=== PATIENT | female | born 1950 | race Caucasian/White ===

== ENCOUNTER 2018-09-03 14:20 | Emergency (ER) | payer MEDICARE, OTHER ==
[~2018-09-03] VITALS: Ht 175.3 cm; Wt 64.9 kg
[~2018-09-03 14:20] MED LIST: ALBU8HFA4 IH; DIAZ10TA PO; DIAZ5TAB4 PO; DIPH25CA83 PO; GABA300C PO
[2018-09-03] MEDS ORDERED: IPRATROPIUM BROMIDE 0.5 MG/2.5 ML NEBU NEB ONE (15:00)
[2018-09-03] MEDS ORDERED: ALBUTEROL SULFATE 2.5 MG/3 ML NEBU NEB ONE (15:00)
[2018-09-03] MEDS ORDERED: ALBUTEROL SULFATE 2.5 MG/3 ML NEBU ONE (15:06)
[2018-09-03] MEDS ORDERED: IPRATROPIUM BROMIDE 0.5 MG/2.5 ML NEBU ONE (15:06)
[2018-09-03] MEDS ORDERED: predniSONE 10 MG TABLET ONE (15:23)
[2018-09-03] MEDS ORDERED: predniSONE 50 MG TABLET ONE (15:23)
--- NOTE | 2018-09-03 15:26 | NUR ---
Patient discharged to home in stable conditon. Written and verbal after care instructions given to patient. Patient verbalizes understanding of instructions.
[2018-09-03] MEDS ORDERED: predniSONE 20 MG TABLET PO ONE (15:30)
== END 2018-09-03 15:31 | disposition home or self-care (01) ==
LOC: EDBD → ER 14:20 → MERGE 14:20 → ER 15:31
DX: J45.901 Unspecified asthma with (acute) exacerbation (principal); H66.91 Otitis media, unspecified, right ear; H60.91 Unspecified otitis externa, right ear; Z88.1 Allergy status to other antibiotic agents; Z88.2 Allergy status to sulfonamides; Z79.899 Other long term (current) drug therapy
CPT/HCPCS: 94640; 99283; J7512 ×2; A4663; J3590

== ENCOUNTER 2018-09-18 23:13 | Emergency (ER) | payer MEDICARE, OTHER ==
[~2018-09-18] VITALS: Ht 170.2 cm; Wt 70.3 kg
[2018-09-18] MEDS ORDERED: FLUT1DIS27 IH (23:22)
--- NOTE | 2018-09-18 23:30 | NUR ---
Pt. ambulated into ED w/ c/o CP and SOB for approx. 3 hours - EKG performed and given to Dr. Porter, Lab. tech. at bedside for blood draw,
--- NOTE | 2018-09-18 23:43 | NUR ---
RT called for breathing treatment
[2018-09-18] MEDS ORDERED: IPRATROPIUM BROMIDE 0.5 MG/2.5 ML NEBU NEB ONE (23:45)
[2018-09-18] MEDS ORDERED: ALBUTEROL SULFATE 2.5 MG/3 ML NEBU NEB ONE (23:45)
[2018-09-18] MEDS ORDERED: predniSONE 10 MG TABLET PO ONE (23:45)
[2018-09-18] MEDS ORDERED: predniSONE 10 MG TABLET ONE (23:46)
--- NOTE | 2018-09-18 23:52 | NUR ---
Rad. tech. at bedside for CXR
--- NOTE | 2018-09-18 23:53 | NUR ---
RT at bedside for breathing treatment
[2018-09-18] MEDS ORDERED: ALBUTEROL SULFATE 2.5 MG/3 ML NEBU ONE (23:55)
[2018-09-18] MEDS ORDERED: IPRATROPIUM BROMIDE 0.5 MG/2.5 ML NEBU ONE (23:55)
[2018-09-18 23:56] LABS: BASOPHILS # (AUTO) 0.1 K/uL (0.0-8.0); EOSINOPHILS # (AUTO) 0.1 K/uL (0.0-0.7); HEMATOCRIT 38.8 % (31.2-41.9); HEMOGLOBIN 13.1 g/dL (10.9-14.3); LYMPHOCYTES # (AUTO) 1.9 K/uL (20.0-40.0); LYMPHOCYTES % (AUTO) 36.7 % (20.5-51.5); MEAN CORPUSCULAR HEMOGLOBIN 31.1 uug (24.7-32.8); MEAN CORPUSCULAR HGB CONC 34 g/dL (32.3-35.6); MEAN CORPUSCULAR VOLUME 91.7 fL (75.5-95.3); MONOCYTES # (AUTO) 0.3 K/uL (2.0-10.0); MONOCYTES % (AUTO) 5.5 % (0.0-11.0); NEUTROPHILS # (AUTO) 2.8 K/uL (1.8-8.9); NEUTROPHILS % (AUTO) 54.8 % (38.5-71.5); PLATELET COUNT (AUTO) 172 K/uL (179-408); RED BLOOD CELL COUNT(AUTO) 4.23 MIL/uL (3.63-4.92); WHITE BLOOD COUNT (AUTO) 5.1 K/uL (3.8-11.8)
[2018-09-18] MEDS ORDERED: ALBUTEROL SULFATE 2.5 MG/ 0.5 ML NEBU ONE (23:56)
[2018-09-19] LABS: CREATININE 0.9 mg/dL (0.6-1.3); POTASSIUM 3.8 mmol/L (3.5-5.1)
--- NOTE | 2018-09-19 01:02 | NUR ---
Pt. resting in bed w/ eyes open, NAD
--- NOTE | 2018-09-19 01:12 | NUR ---
Called RT for breathing tx
[2018-09-19] MEDS ORDERED: ALBUTEROL SULFATE 2.5 MG/3 ML NEBU NEB ONE (01:15)
[2018-09-19] MEDS ORDERED: IPRATROPIUM BROMIDE 0.5 MG/2.5 ML NEBU NEB ONE (01:15)
[2018-09-19] MEDS ORDERED: ALBUTEROL SULFATE 2.5 MG/3 ML NEBU ONE (01:18)
[2018-09-19] MEDS ORDERED: ALBUTEROL SULFATE 2.5 MG/ 0.5 ML NEBU ONE (01:18)
[2018-09-19] MEDS ORDERED: IPRATROPIUM BROMIDE 0.5 MG/2.5 ML NEBU ONE (01:18)
--- NOTE | 2018-09-19 01:19 | NUR ---
RT in w/ pt. for breathing tx
--- NOTE | 2018-09-19 02:02 | NUR ---
Patient discharged to home in stable conditon. Written and verbal after care instructions given. Patient verbalizes understanding of instructions. Pt. d/c w/ prescription per MD order, d/c papers signed, all belongings w/ pt., ID band removed, ambulated off unit w/ steady gait accompanied by male cigarette seller, left in private vehicle, NAD
== END 2018-09-19 02:03 | disposition home or self-care (01) ==
LOC: EDBD → MERGE 23:13 → ER 23:13
DX: J45.901 Unspecified asthma with (acute) exacerbation (principal); Z88.2 Allergy status to sulfonamides; Z88.1 Allergy status to other antibiotic agents; Z79.899 Other long term (current) drug therapy
CPT/HCPCS: 36415; 71045; 80048; 84484; 85025; 85379; 93005; 94644; 94645; 99285; J7512; 70030-TC; A4663; J3590

== ENCOUNTER 2019-03-06 13:10 | Emergency (ER) | payer MEDICARE, OTHER ==
[~2019-03-06] VITALS: Ht 175.3 cm; Wt 65.8 kg
[~2019-03-06 13:10] MED LIST changes: -DIAZ10TA PO; +FLUT1DIS27 IH
[2019-03-06] MEDS ORDERED: ALBUTEROL SULFATE 2.5 MG/3 ML NEBU NEB ONE (14:00)
[2019-03-06] MEDS ORDERED: IPRATROPIUM BROMIDE 0.5 MG/2.5 ML NEBU NEB ONE (14:00)
[2019-03-06] MEDS ORDERED: ALBUTEROL SULFATE 2.5 MG/3 ML NEBU ONE (14:18)
[2019-03-06] MEDS ORDERED: IPRATROPIUM BROMIDE 0.5 MG/2.5 ML NEBU ONE (14:19)
--- NOTE | 2019-03-06 15:17 | NUR ---
Patient discharged to home in stable conditon. Written and verbal after care instructions given. Patient verbalizes understanding of instructions.
== END 2019-03-06 15:18 | disposition home or self-care (01) ==
LOC: ER 13:10
DX: J45.901 Unspecified asthma with (acute) exacerbation (principal); H92.01 Otalgia, right ear; F41.9 Anxiety disorder, unspecified; F32.9 Major depressive disorder, single episode, unspecified; Z76.0 Encounter for issue of repeat prescription; Z90.89 Acquired absence of other organs; Z88.2 Allergy status to sulfonamides; Z88.1 Allergy status to other antibiotic agents; Z79.899 Other long term (current) drug therapy
CPT/HCPCS: A4663; J3590

== ENCOUNTER 2019-04-01 19:57 | Emergency (ER) | payer MEDICARE, OTHER ==
[~2019-04-01] VITALS: Ht 175.3 cm; Wt 64.9 kg
[2019-04-01] MEDS ORDERED: ALBUTEROL SULFATE 2.5 MG/3 ML NEBU ONE (20:24)
[2019-04-01] MEDS ORDERED: IPRATROPIUM BROMIDE 0.5 MG/2.5 ML NEBU ONE (20:25)
[2019-04-01] MEDS ORDERED: predniSONE 20 MG TABLET ONE (20:29)
[2019-04-01] MEDS ORDERED: ALBUTEROL SULFATE 2.5 MG/3 ML NEBU NEB ONE (20:30)
[2019-04-01] MEDS ORDERED: predniSONE 10 MG TABLET PO ONE (20:30)
[2019-04-01] MEDS ORDERED: IPRATROPIUM BROMIDE 0.5 MG/2.5 ML NEBU NEB ONE (20:30)
--- NOTE | 2019-04-01 20:55 | NUR ---
Patient discharged to home in stable conditon. Written and verbal after care instructions given. Patient verbalizes understanding of instructions. Ambulated from ER with stable gait. All belongings with patient.
[2019-04-01 21:13] VITALS: BP 111/68
== END 2019-04-01 21:15 | disposition home or self-care (01) ==
LOC: ER 20:00
DX: J45.901 Unspecified asthma with (acute) exacerbation (principal); F41.9 Anxiety disorder, unspecified; F32.9 Major depressive disorder, single episode, unspecified; E78.00 Pure hypercholesterolemia, unspecified; Z88.1 Allergy status to other antibiotic agents; Z76.0 Encounter for issue of repeat prescription; Z88.2 Allergy status to sulfonamides; Z79.899 Other long term (current) drug therapy
CPT/HCPCS: 94640; 99283; J7512; A4663; J3590

== ENCOUNTER 2019-05-15 15:10 | Emergency (ER) | payer MEDICARE, OTHER ==
[~2019-05-15] VITALS: Ht 175.3 cm; Wt 65.8 kg
--- NOTE | 2019-05-15 15:20 | NUR ---
ADMIT PT IN RM 2A, AMBULATORY WITH C/O OF SOB SECONDARY TO ASTHMA ATTACK. ALERT AND ORIENTEDX3.
--- NOTE | 2019-05-15 16:00 | NUR ---
SEEN BY MD WITH NEW ORDERS.
[2019-05-15] MEDS ORDERED: ALBUTEROL SULFATE 2.5 MG/3 ML NEBU ONE (16:14)
[2019-05-15] MEDS ORDERED: IPRATROPIUM BROMIDE 0.5 MG/2.5 ML NEBU ONE (16:15)
[2019-05-15] MEDS ORDERED: predniSONE 10 MG TABLET PO ONE (16:15)
[2019-05-15] MEDS ORDERED: IPRATROPIUM BROMIDE 0.5 MG/2.5 ML NEBU NEB ONE ×2 (16:15→16:30)
[2019-05-15] MEDS ORDERED: ALBUTEROL SULFATE 2.5 MG/3 ML NEBU NEB ONE ×2 (16:15→16:30)
[2019-05-15] MEDS ORDERED: methylPREDNISolone ACETATE 40 MG VIAL IM ONE (16:15)
--- NOTE | 2019-05-15 16:30 | NUR ---
RESPIRATORY BREATHING TX GIVEN BY RT AT BEDSIDE ORDERED.
--- NOTE | 2019-05-15 16:45 | NUR ---
PT MEDICATED WITH PREDNISONE 60MG PO AND METHYL-PREDNISOLONE 80MG IM GIVEN ON RIGHT DELTOID. PT ATE PUDDING BEFORE TAKING HER MEDICATIONS.
[2019-05-15] MEDS ORDERED: methylPREDNISolone ACETATE 40 MG VIAL ONE (16:46)
[2019-05-15] MEDS ORDERED: predniSONE 10 MG TABLET ONE (16:47)
--- NOTE | 2019-05-15 17:05 | NUR ---
DISCHARGE INSTRUCTIONS GIVEN TO PT WITH GOOD UNDERSTANDING. PT IS DISCHARGE AMBULATORY. CONDITION IS STABLE.
[2019-05-15 17:30] VITALS: BP 110/70
== END 2019-05-15 17:05 | disposition home or self-care (01) ==
LOC: ER 15:10
DX: J45.901 Unspecified asthma with (acute) exacerbation (principal); F41.9 Anxiety disorder, unspecified; F32.9 Major depressive disorder, single episode, unspecified; E78.00 Pure hypercholesterolemia, unspecified; Z90.89 Acquired absence of other organs; Z88.2 Allergy status to sulfonamides; Z88.1 Allergy status to other antibiotic agents; Z79.899 Other long term (current) drug therapy
CPT/HCPCS: 94640; 96372; 99283; J1030; J7512; A4663; J3590

== ENCOUNTER 2019-05-17 17:55 | Emergency (ER) | payer MEDICARE, OTHER ==
[~2019-05-17] VITALS: Ht 175.3 cm; Wt 65.8 kg
[2019-05-17] MEDS ORDERED: ALBUTEROL SULFATE 2.5 MG/3 ML NEBU NEB ONE (18:45)
[2019-05-17] MEDS ORDERED: IPRATROPIUM BROMIDE 0.5 MG/2.5 ML NEBU NEB ONE (18:45)
[2019-05-17] MEDS ORDERED: IPRATROPIUM BROMIDE 0.5 MG/2.5 ML NEBU ONE (18:46)
[2019-05-17] MEDS ORDERED: ALBUTEROL SULFATE 2.5 MG/3 ML NEBU ONE (18:46)
[2019-05-17 18:57] LABS: *BILIRUBIN,URIN NEGATIVE (NEGATIVE); *CLARITY,URINE CLEAR (CLEAR); *COLOR,URINE YELLOW (YELLOW); *KETONES,URINE NEGATIVE (NEGATIVE); *UROBILINOGEN,URINE 0.2 E.U./dl (NORMAL); LEUKOCYTE ESTERASE ,URINE TRACE (NEGATIVE); NITRITE, URINE NEGATIVE (NEGATIVE); PH,URINE 5.5 (5.0-8.0); UGLUCOSE NEGATIVE (NEGATIVE)
[2019-05-17 19:04] LABS: *BLOOD, URINE TRACE (NEGATIVE)
[2019-05-17 19:20] LABS: RBC,URINE 0-3 /HPF (0-3); WBC,URINE 0-3 /HPF (0-3)
[2019-05-17 19:21] LABS: BACTERIA,URINE FEW /HPF (NONE SEEN); SQUAMOUS EPITHELIAL CELL,UR FEW /HPF (NONE SEEN)
--- NOTE | 2019-05-17 19:27 | NUR ---
Patient discharged to home in stable conditon. Written and verbal after care instructions given. Patient verbalizes understanding of instructions. Patient ambulated with stable gait.
[2019-05-17 19:28] VITALS: BP 121/73
== END 2019-05-17 19:29 | disposition home or self-care (01) ==
LOC: ER 17:55
DX: R30.0 Dysuria (principal); J45.909 Unspecified asthma, uncomplicated; F41.9 Anxiety disorder, unspecified; F32.9 Major depressive disorder, single episode, unspecified; E78.00 Pure hypercholesterolemia, unspecified; Z90.89 Acquired absence of other organs; Z88.2 Allergy status to sulfonamides; Z88.1 Allergy status to other antibiotic agents; Z79.899 Other long term (current) drug therapy
CPT/HCPCS: 87086; A4663; J3590

== ENCOUNTER 2019-05-27 15:11 | Emergency (ER) | payer MEDICARE, OTHER ==
[~2019-05-27] VITALS: Ht 175.3 cm; Wt 64.9 kg
[2019-05-27 16:39] LABS: *BILIRUBIN,URIN NEGATIVE (NEGATIVE); *BLOOD, URINE NEGATIVE (NEGATIVE); *CLARITY,URINE CLEAR (CLEAR); *COLOR,URINE YELLOW (YELLOW); *KETONES,URINE NEGATIVE (NEGATIVE); *UROBILINOGEN,URINE 0.2 E.U./dl (NORMAL); LEUKOCYTE ESTERASE ,URINE 1+ (NEGATIVE); NITRITE, URINE NEGATIVE (NEGATIVE); UGLUCOSE NEGATIVE (NEGATIVE)
[2019-05-27 17:03] LABS: RBC,URINE 0-3 /HPF (0-3); SQUAMOUS EPITHELIAL CELL,UR FEW /HPF (NONE SEEN)
[2019-05-27 17:13] LABS: BASOPHILS % (AUTO) 0.9 % (0.0-2.0); EOSINOPHILS # (AUTO) 0.1 K/uL (0.0-0.7); EOSINOPHILS % (AUTO) 1.5 % (0.0-7.0); HEMATOCRIT 40.1 % (31.2-41.9); LYMPHOCYTES # (AUTO) 2.3 K/uL (20.0-40.0); LYMPHOCYTES % (AUTO) 47.4 % (20.5-51.5); MEAN CORPUSCULAR HEMOGLOBIN 31.4 uug (24.7-32.8); MEAN CORPUSCULAR HGB CONC 33 g/dL (32.3-35.6); MEAN CORPUSCULAR VOLUME 96.5 fL (75.5-95.3); MONOCYTES # (AUTO) 0.3 K/uL (2.0-10.0); MONOCYTES % (AUTO) 6.9 % (0.0-11.0); NEUTROPHILS # (AUTO) 2.1 K/uL (1.8-8.9); NEUTROPHILS % (AUTO) 43.3 % (38.5-71.5); PLATELET COUNT (AUTO) 162 K/uL (179-408); RED BLOOD CELL COUNT(AUTO) 4.15 MIL/uL (3.63-4.92); WHITE BLOOD COUNT (AUTO) 4.9 K/uL (3.8-11.8)
[2019-05-27 17:16] LABS: CREATININE 0.8 mg/dL (0.6-1.3); POTASSIUM 4.1 mmol/L (3.5-5.1)
[2019-05-27 17:22] LABS: BILIRUBIN,DIRECT 0.1 mg/dL (0.0-0.2); BILIRUBIN,TOTAL 0.3 mg/dL (0.2-1.0); TOTAL PROTEIN, SERUM 6.4 g/dL (6.4-8.2)
--- NOTE | 2019-05-27 18:00 | NUR ---
Patient discharged to home in stable conditon. Written and verbal after care instructions given. Patient verbalizes understanding of instructions.pt walks in steady gait.
== END 2019-05-27 18:16 | disposition home or self-care (01) ==
LOC: ER 15:12
DX: N10 Acute pyelonephritis (principal); J45.909 Unspecified asthma, uncomplicated; F41.9 Anxiety disorder, unspecified; F32.9 Major depressive disorder, single episode, unspecified; Z88.2 Allergy status to sulfonamides; Z88.1 Allergy status to other antibiotic agents; Z79.899 Other long term (current) drug therapy
CPT/HCPCS: 36415; 83690; 85025; 87086; A4663

== ENCOUNTER 2019-07-16 17:44 | Emergency (ER) | payer MEDICARE, OTHER, BC ==
[~2019-07-16] VITALS: Ht 175.3 cm; Wt 65.8 kg
--- NOTE | 2019-07-16 17:50 | NUR ---
Received pt from home walking in accompany by jamila c/o plaption and dizzness sarted today at 1600 today awake and alert resp spont and easy EKG done examine by Yonas brewer cath # on lt arm blood drow and sent to lab c/o nausea and vomiting x4 today hr 115b/min zofran 4mg ivp given
[2019-07-16] MEDS ORDERED: ONDANSETRON 4 MG/2 ML VIAL IV ONE (18:15)
[2019-07-16] MEDS ORDERED: IV NORMAL SALINE 1000 ML BAG IV ONE (18:15)
[2019-07-16] MEDS ORDERED: ONDANSETRON 4 MG/2 ML VIAL ONE (18:22)
[2019-07-16 18:28] LABS: BASOPHILS % (AUTO) 0.2 % (0.0-2.0); EOSINOPHILS % (AUTO) 0.3 % (0.0-7.0); HEMOGLOBIN 13.2 g/dL (10.9-14.3); LYMPHOCYTES # (AUTO) 0.4 K/uL (20.0-40.0); LYMPHOCYTES % (AUTO) 6.4 % (20.5-51.5); MEAN CORPUSCULAR HEMOGLOBIN 31.3 uug (24.7-32.8); MEAN CORPUSCULAR HGB CONC 33 g/dL (32.3-35.6); MEAN CORPUSCULAR VOLUME 94.6 fL (75.5-95.3); MONOCYTES # (AUTO) 0.2 K/uL (2.0-10.0); MONOCYTES % (AUTO) 3.2 % (0.0-11.0); NEUTROPHILS # (AUTO) 5.7 K/uL (1.8-8.9); NEUTROPHILS % (AUTO) 89.9 % (38.5-71.5); PLATELET COUNT (AUTO) 176 K/uL (179-408); RED BLOOD CELL COUNT(AUTO) 4.23 MIL/uL (3.63-4.92); WHITE BLOOD COUNT (AUTO) 6.3 K/uL (3.8-11.8)
[2019-07-16 18:37] LABS: CREATININE 0.8 mg/dL (0.6-1.3); POTASSIUM 3.6 mmol/L (3.5-5.1)
[2019-07-16 18:43] LABS: BILIRUBIN,DIRECT 0.1 mg/dL (0.0-0.2); BILIRUBIN,TOTAL 0.4 mg/dL (0.2-1.0); TOTAL PROTEIN, SERUM 6.5 g/dL (6.4-8.2)
[2019-07-16] MEDS ORDERED: IV LACTATED RINGERS SOLUTION 1,000 ML IV ONE (18:43)
--- NOTE | 2019-07-16 18:43 | NUR ---
resting and asleepy dineses chest pain HR 105B/MIN
[2019-07-16] MEDS ORDERED: IPRATROPIUM BROMIDE 0.5 MG/2.5 ML NEBU NEB ONE (18:45)
[2019-07-16] MEDS ORDERED: ALBUTEROL SULFATE 2.5 MG/3 ML NEBU NEB ONE (18:45)
[2019-07-16] MEDS ORDERED: methylPREDNISolone SOD SUCC 125 MG/2 ML VIAL IV ONE (18:45)
[2019-07-16] MEDS ORDERED: IPRATROPIUM BROMIDE 0.5 MG/2.5 ML NEBU ONE (18:50)
[2019-07-16] MEDS ORDERED: ALBUTEROL SULFATE 2.5 MG/3 ML NEBU ONE (18:50)
[2019-07-16] MEDS ORDERED: methylPREDNISolone SOD SUCC 125 MG/2 ML VIAL ONE (18:56)
[2019-07-16] MEDS ORDERED: DICYCLOMINE HCL LIQ 10 MG/5 ML UDC PO ONE (19:00)
[2019-07-16] MEDS ORDERED: DICYCLOMINE HCL LIQ 10 MG/5 ML UDC ONE (19:05)
--- NOTE | 2019-07-16 19:14 | NUR ---
Assumed care of pt at this time. Breathing tx completed. Pt walked to restroom in steady gait. States she feels better. LR fluids IV infusing. at bedside. No acute distress noted.
--- NOTE | 2019-07-16 19:32 | NUR ---
Pt states she is feeling so much better and would like to go home.
--- NOTE | 2019-07-16 19:49 | NUR ---
Lactated Ringer's 1,000ml IV infusion complete. end time @ 194.
--- NOTE | 2019-07-16 19:50 | NUR ---
Patient discharged to home in stable conditon. Written and verbal after care instructions given. Patient verbalizes understanding of instructions. Pt walked out of ER in stable gait. No acute distress noted. Vital signs stable. Respirations even + unlabored. Pt states she feels so much better.
--- NOTE | 2019-07-16 19:50 | NUR ---
IV removed. Catheter intact and site benign. Pressure and 4x4 gauze applied to site. No bleeding noted.
[2019-07-16 19:51] VITALS: BP 121/66
== END 2019-07-16 19:54 | disposition home or self-care (01) ==
LOC: ER 17:48
DX: R11.2 Nausea with vomiting, unspecified (principal); R19.7 Diarrhea, unspecified; R42 Dizziness and giddiness; J45.909 Unspecified asthma, uncomplicated; F41.9 Anxiety disorder, unspecified; F32.9 Major depressive disorder, single episode, unspecified; E78.5 Hyperlipidemia, unspecified; Z88.1 Allergy status to other antibiotic agents; Z88.2 Allergy status to sulfonamides; Z79.899 Other long term (current) drug therapy
CPT/HCPCS: 36415; 80048; 80076; 83690; 84484; 85025; 85730; 93005; 94640; 96361; 96374; 96375; 99284; J2405; J2930; J7120; 70030-TC; A4663; J3590; J7030

== ENCOUNTER 2019-08-31 17:07 | Emergency (ER) | payer MEDICARE, OTHER ==
[~2019-08-31] VITALS: Ht 172.7 cm; Wt 66.2 kg
[~2019-08-31 17:07] MED LIST changes: -DIAZ5TAB4 PO
[2019-08-31] MEDS ORDERED: DIAZ5TAB PO (17:25)
[2019-08-31] MEDS ORDERED: methylPREDNISolone SOD SUCC 125 MG/2 ML VIAL ONE (17:57)
--- NOTE | 2019-08-31 17:58 | NUR ---
Patient refused blood work, and iv insertion for medication.
--- NOTE | 2019-08-31 17:59 | NUR ---
Patient refused xray imaging as well. States she just wants a breathing treatment.
[2019-08-31] MEDS ORDERED: ALBUTEROL SULFATE 2.5 MG/3 ML NEBU NEB ONE (18:00)
[2019-08-31] MEDS ORDERED: IPRATROPIUM BROMIDE 0.5 MG/2.5 ML NEBU ONE (18:00)
[2019-08-31] MEDS ORDERED: methylPREDNISolone SOD SUCC 125 MG/2 ML VIAL IV ONE (18:00)
[2019-08-31] MEDS ORDERED: predniSONE 20 MG TABLET PO ONE (18:00)
[2019-08-31] MEDS ORDERED: IPRATROPIUM BROMIDE 0.5 MG/2.5 ML NEBU NEB ONE (18:00)
[2019-08-31] MEDS ORDERED: ALBUTEROL SULFATE 2.5 MG/3 ML NEBU ONE (18:00)
[2019-08-31] MEDS ORDERED: predniSONE 50 MG TABLET ONE (18:09)
[2019-08-31] MEDS ORDERED: predniSONE 10 MG TABLET ONE (18:09)
--- NOTE | 2019-08-31 18:12 | NUR ---
PT CURRENTLY ON BREATHING TREATMENT W/ RT AT BEDSIDE HAND OFF AND SBAR RECEIVED FR DAY SHIFT RN O2SAT AT 96% PT ABLE TO SPEAK CLEAR AND COMPLETE SENTENCES WITH OCCASSIONAL INTERRUPTIONS FR COUGHING +MILD CRACKLES ON BOTH UPPER LUNG LOPEZ PT ABLE TO TOLERATE PO MEDS ORDERED
--- NOTE | 2019-08-31 18:22 | NUR ---
BREATHING TREATMENT DONE PT REPORTS FEELING BETTER O2SAT AT 96% RA STILL +INSPIRATORY WHEEZES ON R UPPER LUNG FIELD LESSER CRACKLES ON L UPPER LUNG FIELD
--- NOTE | 2019-08-31 18:53 | NUR ---
Patient discharged to home in stable conditon. Written and verbal after care instructions given. Patient verbalizes understanding of instructions. Patient ambulated with stable gait.
[2019-08-31 18:54] VITALS: BP 125/89
== END 2019-08-31 18:54 | disposition home or self-care (01) ==
LOC: ER 17:07
DX: J45.901 Unspecified asthma with (acute) exacerbation (principal); F41.9 Anxiety disorder, unspecified; F32.9 Major depressive disorder, single episode, unspecified; E78.00 Pure hypercholesterolemia, unspecified; Z88.2 Allergy status to sulfonamides; Z88.1 Allergy status to other antibiotic agents; Z79.899 Other long term (current) drug therapy
CPT/HCPCS: 94640; 99283; J7512 ×2; A4663; J2930; J3590

== ENCOUNTER 2019-09-22 01:01 | Emergency (ER) | payer MEDICARE, OTHER ==
[~2019-09-22] VITALS: Ht 175.3 cm; Wt 65.8 kg
[2019-09-22 01:51] LABS: BASOPHILS % (AUTO) 0.7 % (0.0-2.0); EOSINOPHILS # (AUTO) 0.2 K/uL (0.0-0.7); EOSINOPHILS % (AUTO) 3.8 % (0.0-7.0); HEMATOCRIT 39.6 % (31.2-41.9); HEMOGLOBIN 13.1 g/dL (10.9-14.3); LYMPHOCYTES # (AUTO) 1.6 K/uL (20.0-40.0); LYMPHOCYTES % (AUTO) 33.7 % (20.5-51.5); MEAN CORPUSCULAR HEMOGLOBIN 31.2 uug (24.7-32.8); MEAN CORPUSCULAR HGB CONC 33 g/dL (32.3-35.6); MEAN CORPUSCULAR VOLUME 94.4 fL (75.5-95.3); MONOCYTES # (AUTO) 0.3 K/uL (2.0-10.0); MONOCYTES % (AUTO) 7.1 % (0.0-11.0); NEUTROPHILS # (AUTO) 2.6 K/uL (1.8-8.9); NEUTROPHILS % (AUTO) 54.7 % (38.5-71.5); PLATELET COUNT (AUTO) 208 K/uL (179-408); WHITE BLOOD COUNT (AUTO) 4.8 K/uL (3.8-11.8)
[2019-09-22] MEDS ORDERED: predniSONE 10 MG TABLET ONE (01:59)
[2019-09-22] MEDS ORDERED: predniSONE 50 MG TABLET ONE (01:59)
[2019-09-22] MEDS ORDERED: IPRATROPIUM BROMIDE 0.5 MG/2.5 ML NEBU NEB ONE (02:00)
[2019-09-22] MEDS ORDERED: ALBUTEROL SULFATE 2.5 MG/3 ML NEBU NEB ONE (02:00)
[2019-09-22] MEDS ORDERED: predniSONE 20 MG TABLET PO ONE (02:00)
[2019-09-22] MEDS ORDERED: ALBUTEROL SULFATE 2.5 MG/3 ML NEBU ONE (02:05)
[2019-09-22] MEDS ORDERED: IPRATROPIUM BROMIDE 0.5 MG/2.5 ML NEBU ONE (02:06)
[2019-09-22 02:19] LABS: CREATININE 0.9 mg/dL (0.6-1.3); POTASSIUM 3.5 mmol/L (3.5-5.1)
[2019-09-22 02:32] LABS: BILIRUBIN,DIRECT 0.1 mg/dL (0.0-0.2); BILIRUBIN,TOTAL 0.4 mg/dL (0.2-1.0); TOTAL PROTEIN, SERUM 6.9 g/dL (6.4-8.2)
[2019-09-22] MEDS ORDERED: IV NS 1000 ML 1,000 ML IV ONE (03:15)
--- NOTE | 2019-09-22 03:57 | NUR ---
pt able to complete breathing treatment states feeling better PT ABLE TO AMBULATE AROUND THE ROOM AND TOWARDS THE BATHROOM WITHOUT ASSIST STABLE GAIT RA NAD
--- NOTE | 2019-09-22 04:09 | NUR ---
Patient discharged to home in stable conditon. Written and verbal after care instructions given. Patient verbalizes understanding of instructions. AMBULATORY W/ STABLE GAIT IV DC, DRESSED ALL BELONGINGS W/ PT WILL PICK HER UP
[2019-09-22 04:26] VITALS: BP 111/74
== END 2019-09-22 04:27 | disposition home or self-care (01) ==
LOC: ER 01:07
DX: J45.901 Unspecified asthma with (acute) exacerbation (principal); F41.9 Anxiety disorder, unspecified; F32.9 Major depressive disorder, single episode, unspecified; E78.00 Pure hypercholesterolemia, unspecified; F10.10 Alcohol abuse, uncomplicated; Z76.0 Encounter for issue of repeat prescription; Z88.2 Allergy status to sulfonamides; Z88.1 Allergy status to other antibiotic agents; Z79.899 Other long term (current) drug therapy; Y90.9 Presence of alcohol in blood, level not specified
CPT/HCPCS: 36415; 71045; 80048; 80076; 83880; 84484; 85025; 85730; 93005; 94644; 99285; J7512 ×2; 70030-TC; A4663; J3590; J7030

== ENCOUNTER 2019-09-24 20:07 | Emergency (ER) | payer MEDICARE, OTHER ==
[~2019-09-24] VITALS: Ht 175.3 cm; Wt 65.8 kg
[2019-09-24] MEDS ORDERED: ALBUTEROL SULFATE 2.5 MG/3 ML NEBU NEB ONE (20:30)
[2019-09-24] MEDS ORDERED: IPRATROPIUM BROMIDE 0.5 MG/2.5 ML NEBU NEB ONE (20:30)
--- NOTE | 2019-09-24 20:33 | NUR ---
Patient refused influenza screening, ERMD aware
[2019-09-24] MEDS ORDERED: ALBUTEROL SULFATE 2.5 MG/3 ML NEBU ONE (20:38)
[2019-09-24] MEDS ORDERED: IPRATROPIUM BROMIDE 0.5 MG/2.5 ML NEBU ONE (20:39)
--- NOTE | 2019-09-24 22:01 | NUR ---
Patient discharged to home in stable conditon. Written and verbal after care instructions given. Patient verbalizes understanding of instructions. Patient ambulated with stable gait.
[2019-09-24 22:02] VITALS: BP 122/89
== END 2019-09-24 22:02 | disposition home or self-care (01) ==
LOC: ER 20:08
DX: R05 Cough (principal); J45.909 Unspecified asthma, uncomplicated; F41.9 Anxiety disorder, unspecified; F32.9 Major depressive disorder, single episode, unspecified; E78.5 Hyperlipidemia, unspecified; Z88.2 Allergy status to sulfonamides; Z88.1 Allergy status to other antibiotic agents; Z79.899 Other long term (current) drug therapy; Z79.2 Long term (current) use of antibiotics
CPT/HCPCS: 71045; A4663; J3590

== ENCOUNTER 2019-10-23 20:17 | Emergency (ER) | payer MEDICARE, OTHER ==
[~2019-10-23] VITALS: Ht 175.3 cm; Wt 65.8 kg
[~2019-10-23 20:17] MED LIST changes: +AMOX500T2 PO; +DIAZ5TAB PO; -FLUT1DIS27 IH; +MONT10TA22 PO
--- NOTE | 2019-10-23 20:39 | NUR ---
Dr Branham into eval patient.
[2019-10-23] MEDS ORDERED: IPRATROPIUM BROMIDE 0.5 MG/2.5 ML NEBU NEB ONE (20:45)
[2019-10-23] MEDS ORDERED: predniSONE 20 MG TABLET PO ONE (20:45)
[2019-10-23] MEDS ORDERED: DIAZEPAM 2 MG TABLET PO ONE (20:45)
[2019-10-23] MEDS ORDERED: ALBUTEROL SULFATE 2.5 MG/3 ML NEBU NEB ONE (20:45)
[2019-10-23] MEDS ORDERED: predniSONE 10 MG TABLET ONE (20:46)
[2019-10-23] MEDS ORDERED: DIAZEPAM 5 MG TABLET ONE (20:46)
[2019-10-23] MEDS ORDERED: predniSONE 50 MG TABLET ONE (20:46)
[2019-10-23] MEDS ORDERED: IPRATROPIUM BROMIDE 0.5 MG/2.5 ML NEBU ONE (20:47)
[2019-10-23] MEDS ORDERED: ALBUTEROL SULFATE 2.5 MG/3 ML NEBU ONE (20:47)
[2019-10-23] MEDS ORDERED: diphenhydrAMINE 50 MG CAPSULE ONE (20:58)
[2019-10-23] MEDS ORDERED: diphenhydrAMINE 50 MG CAPSULE PO ONE (21:00)
[2019-10-23 21:12] VITALS: BP 112/90
--- NOTE | 2019-10-23 21:12 | NUR ---
Patient discharged to home in stable conditon with taking patient home. Written and verbal after care instructions given. Patient verbalizes understanding of instructions. Walked out of ER with no distress noted.
== END 2019-10-23 21:13 | disposition home or self-care (01) ==
LOC: ER 20:18
DX: J45.901 Unspecified asthma with (acute) exacerbation (principal); F41.9 Anxiety disorder, unspecified; F32.9 Major depressive disorder, single episode, unspecified; E78.00 Pure hypercholesterolemia, unspecified; Z88.2 Allergy status to sulfonamides; Z88.1 Allergy status to other antibiotic agents; Z79.899 Other long term (current) drug therapy; Z90.49 Acquired absence of other specified parts of digestive tract
CPT/HCPCS: 94640; 99284; J7512 ×2; Q0163; A4663; J3590

== ENCOUNTER 2019-11-06 12:52 | Emergency (ER) | payer MEDICARE, OTHER ==
[~2019-11-06] VITALS: Ht 175.3 cm; Wt 65.8 kg
[2019-11-06] MEDS ORDERED: predniSONE 10 MG TABLET ONE (13:11)
[2019-11-06] MEDS ORDERED: ALBUTEROL SULFATE 2.5 MG/3 ML NEBU ONE (13:14)
[2019-11-06] MEDS ORDERED: ALBUTEROL SULFATE 2.5 MG/3 ML NEBU NEB ONE (13:15)
[2019-11-06] MEDS ORDERED: IPRATROPIUM BROMIDE 0.5 MG/2.5 ML NEBU NEB ONE (13:15)
[2019-11-06] MEDS ORDERED: IPRATROPIUM BROMIDE 0.5 MG/2.5 ML NEBU ONE (13:15)
[2019-11-06] MEDS ORDERED: predniSONE 10 MG TABLET PO ONE (13:15)
--- NOTE | 2019-11-06 13:26 | NUR ---
PATIENT WALKED IN W/ STEADY GAIT. PT A&0X4, CLEAR SPEECH W/ COMPLETE SENTENCES. PT C/O SOB AND COUGH X2 DAYS. LUNG SOUND CLEAR THROUGHOUT. NO ACUTE DISTRESS. PT DENIES CP OR PALPITATIONS, PT IN SR. PT DENIES ANY ABD PAIN AND OR N/V/D, DENIES DISTRESS. PATIENT LAYING INBED,BED IN LOWEST POSTION, SIDE RAILS UP X2, CALL LIGHT WITHIN REACH. FALL PRECAUTION IMPLEMETED PER PROTOCOL.
[2019-11-06 14:01] VITALS: BP 136/86
== END 2019-11-06 14:03 | disposition home or self-care (01) ==
LOC: ER 12:58
DX: J45.901 Unspecified asthma with (acute) exacerbation (principal); J20.9 Acute bronchitis, unspecified; E78.5 Hyperlipidemia, unspecified; Z79.899 Other long term (current) drug therapy; Z88.1 Allergy status to other antibiotic agents; Z88.2 Allergy status to sulfonamides
CPT/HCPCS: 71045; 94640; 99283; J7512; A4663; J3590

== ENCOUNTER 2019-11-28 20:58 | Emergency (ER) | payer MEDICARE, OTHER ==
[~2019-11-28] VITALS: Ht 172.7 cm; Wt 66.2 kg
--- NOTE | 2019-11-28 21:15 | NUR ---
Patient ambulated with steady gait to the ER. AOx4. Able to verbalize needs. Came in for sore throat, and verbalizes slight SOB. Afebrile. Respirations are even and unlabored, saturating at 96% on RA. Does not appear to be in any cardio-respiratory distress. No GI/ issues. Able to go to the restroom, continent. Fall and safety precautions maintained. Fall and safety precautions maintained.
--- NOTE | 2019-11-28 21:30 | NUR ---
Dr. Patel at bedside for MSE.
--- NOTE | 2019-11-28 21:37 | NUR ---
Patient transferred to Room 3, placed on airborne/droplet precautions.
[2019-11-28] MEDS ORDERED: DIAZEPAM 2 MG TABLET PO ONE (21:45)
[2019-11-28] MEDS ORDERED: DIAZEPAM 2 MG TABLET ONE (22:01)
[2019-11-28 22:12] LABS: BASOPHILS # (AUTO) 0.1 K/uL (0.0-8.0); BASOPHILS % (AUTO) 0.9 % (0.0-2.0); EOSINOPHILS # (AUTO) 0.6 K/uL (0.0-0.7); HEMATOCRIT 39.2 % (31.2-41.9); LYMPHOCYTES % (AUTO) 31.2 % (20.5-51.5); MEAN CORPUSCULAR HEMOGLOBIN 30.9 uug (24.7-32.8); MEAN CORPUSCULAR HGB CONC 33 g/dL (32.3-35.6); MEAN CORPUSCULAR VOLUME 92.9 fL (75.5-95.3); MONOCYTES # (AUTO) 0.5 K/uL (2.0-10.0); MONOCYTES % (AUTO) 8.2 % (0.0-11.0); NEUTROPHILS # (AUTO) 3.3 K/uL (1.8-8.9); NEUTROPHILS % (AUTO) 50.7 % (38.5-71.5); PLATELET COUNT (AUTO) 256 K/uL (179-408); RED BLOOD CELL COUNT(AUTO) 4.22 MIL/uL (3.63-4.92); WHITE BLOOD COUNT (AUTO) 6.5 K/uL (3.8-11.8)
--- NOTE | 2019-11-28 22:15 | NUR ---
Patient remains stable at this time. All orders carried out, tolerated well. Fall, safety and isolation precautions maintained.
[2019-11-28 22:21] LABS: CREATININE 0.8 mg/dL (0.6-1.3); POTASSIUM 3.7 mmol/L (3.5-5.1)
[2019-11-28 22:34] LABS: BILIRUBIN,TOTAL 0.2 mg/dL (0.2-1.0); TOTAL PROTEIN, SERUM 6.6 g/dL (6.4-8.2)
--- NOTE | 2019-11-28 23:50 | NUR ---
Patient discharged to home. Written and verbal after care instructions given. Patient verbalizes understanding of instructions. Stressed follow up or return to ER for worsening s/s. Ambulated out of ER in steady gait, and stable condition.
[2019-11-28 23:53] VITALS: BP 132/73
== END 2019-11-28 23:55 | disposition home or self-care (01) ==
LOC: ER 21:00
DX: R06.02 Shortness of breath (principal); R05 Cough; J02.9 Acute pharyngitis, unspecified; J45.909 Unspecified asthma, uncomplicated; G62.9 Polyneuropathy, unspecified; Z79.899 Other long term (current) drug therapy
CPT/HCPCS: 36415; 70030-TC; 71045; 83615; 85025; 86140; 87086; 87400; 93005; A4663

== ENCOUNTER 2019-12-11 13:10 | Emergency (ER) | payer MEDICARE, OTHER ==
[~2019-12-11] VITALS: Ht 172.7 cm; Wt 66.2 kg
[2019-12-11] MEDS ORDERED: IPRATROPIUM BROMIDE 0.5 MG/2.5 ML NEBU NEB ONE (13:45)
[2019-12-11] MEDS ORDERED: ALBUTEROL SULFATE 2.5 MG/3 ML NEBU NEB ONE (13:45)
[2019-12-11] MEDS ORDERED: predniSONE 20 MG TABLET PO ONE (13:45)
[2019-12-11] MEDS ORDERED: predniSONE 20 MG TABLET ONE (13:47)
[2019-12-11] MEDS ORDERED: IPRATROPIUM BROMIDE 0.5 MG/2.5 ML NEBU ONE (13:50)
[2019-12-11] MEDS ORDERED: ALBUTEROL SULFATE 2.5 MG/3 ML NEBU ONE (13:50)
--- NOTE | 2019-12-11 14:22 | NUR ---
Patient discharged to home in stable condition. Written and verbal after care instructions given. Patient verbalizes understanding of instructions.pt walks in steady gait, pt says feels better, Stressed follow up or return to ER for worsening s/s.
[2019-12-11 14:23] VITALS: BP 102/59
== END 2019-12-11 14:28 | disposition home or self-care (01) ==
LOC: ER 13:13
DX: J45.901 Unspecified asthma with (acute) exacerbation (principal); Z79.51 Long term (current) use of inhaled steroids; G62.9 Polyneuropathy, unspecified; Z79.899 Other long term (current) drug therapy
CPT/HCPCS: 94640; 99283; J7512; A4663; J3590

== ENCOUNTER 2020-01-15 20:23 | Emergency (ER) | payer MEDICARE, OTHER ==
[~2020-01-15] VITALS: Ht 175.3 cm; Wt 66.7 kg
[~2020-01-15 20:23] MED LIST changes: -AMOX500T2 PO
[2020-01-15 20:50] LABS: *BILIRUBIN,URIN NEGATIVE (NEGATIVE); *CLARITY,URINE CLEAR (CLEAR); *COLOR,URINE YELLOW (YELLOW); *KETONES,URINE NEGATIVE (NEGATIVE); *UROBILINOGEN,URINE 0.2 E.U./dl (NORMAL); LEUKOCYTE ESTERASE ,URINE TRACE (NEGATIVE); NITRITE, URINE NEGATIVE (NEGATIVE); UGLUCOSE NEGATIVE (NEGATIVE)
--- NOTE | 2020-01-15 20:51 | NUR ---
YOHANNES TAVERAS AT BEDSIDE FOR MSE.
[2020-01-15 20:55] LABS: *BLOOD, URINE TRACE (NEGATIVE); RBC,URINE 0-3 /HPF (0-3); SQUAMOUS EPITHELIAL CELL,UR FEW /HPF (NONE SEEN)
[2020-01-15] MEDS ORDERED: IPRATROPIUM BROMIDE 0.5 MG/2.5 ML NEBU NEB ONE (21:00)
[2020-01-15] MEDS ORDERED: NITROFURANTOIN/NITROFURAN MAC 100 MG CAPSULE PO ONE (21:00)
[2020-01-15] MEDS ORDERED: ALBUTEROL SULFATE 2.5 MG/3 ML NEBU NEB ONE (21:00)
[2020-01-15] MEDS ORDERED: NITROFURANTOIN/NITROFURAN MAC 100 MG CAPSULE ONE (21:05)
[2020-01-15] MEDS ORDERED: ALBUTEROL SULFATE 2.5 MG/ 0.5 ML NEBU ONE (21:06)
[2020-01-15] MEDS ORDERED: IPRATROPIUM BROMIDE 0.5 MG/2.5 ML NEBU ONE (21:06)
--- NOTE | 2020-01-15 21:29 | NUR ---
Patient discharged to home in stable condition. Written and verbal after care instructions given. Patient verbalizes understanding of instructions. Stressed follow up or return to ER for worsening s/s. ALL BELONGINGS W/ PT. PT SELF-AMBULATED W/O DIFFICULTY.
[2020-01-15 21:30] VITALS: BP 118/86
== END 2020-01-15 21:30 | disposition home or self-care (01) ==
LOC: ER 20:26
DX: N30.90 Cystitis, unspecified without hematuria (principal); J45.901 Unspecified asthma with (acute) exacerbation; G62.9 Polyneuropathy, unspecified; E78.00 Pure hypercholesterolemia, unspecified; Z79.899 Other long term (current) drug therapy
CPT/HCPCS: 94640; A4663; J3590

== ENCOUNTER 2020-01-28 12:23 | Emergency (ER) | payer MEDICARE, OTHER ==
[~2020-01-28] VITALS: Ht 172.7 cm; Wt 66.7 kg
--- NOTE | 2020-01-28 13:01 | NUR ---
Pt was seen by .
[2020-01-28 13:06] LABS: *BILIRUBIN,URIN NEGATIVE (NEGATIVE); *CLARITY,URINE CLEAR (CLEAR); *COLOR,URINE YELLOW (YELLOW); *KETONES,URINE NEGATIVE (NEGATIVE); *UROBILINOGEN,URINE 0.2 E.U./dl (NORMAL); LEUKOCYTE ESTERASE ,URINE NEGATIVE (NEGATIVE); NITRITE, URINE NEGATIVE (NEGATIVE); UGLUCOSE NEGATIVE (NEGATIVE)
[2020-01-28 13:21] VITALS: BP 125/64
[2020-01-28 13:22] LABS: *BLOOD, URINE TRACE (NEGATIVE)
[2020-01-28 13:23] LABS: BACTERIA,URINE FEW /HPF (NONE SEEN); SQUAMOUS EPITHELIAL CELL,UR FEW /HPF (NONE SEEN); WBC,URINE 0-3 /HPF (0-3)
== END 2020-01-28 13:22 | disposition home or self-care (01) ==
LOC: ER 12:23
DX: N39.0 Urinary tract infection, site not specified (principal); R31.29 Other microscopic hematuria; Z88.2 Allergy status to sulfonamides; Z87.440 Personal history of urinary (tract) infections; J45.909 Unspecified asthma, uncomplicated; G62.9 Polyneuropathy, unspecified; E78.00 Pure hypercholesterolemia, unspecified; Z79.899 Other long term (current) drug therapy
CPT/HCPCS: A4663

== ENCOUNTER 2020-06-02 13:11 | Emergency (ER) | payer MEDICARE, OTHER ==
[~2020-06-02] VITALS: Ht 172.7 cm; Wt 63.5 kg
--- NOTE | 2020-06-02 13:18 | NUR ---
PT IS IN ROOM #1B. DR CALIXTO EVALUATED THE PT.
[2020-06-02] MEDS ORDERED: ALBUTEROL SULFATE 2.5 MG/3 ML NEBU ONE (13:27)
[2020-06-02] MEDS ORDERED: IPRATROPIUM BROMIDE 0.5 MG/2.5 ML NEBU ONE (13:27)
[2020-06-02] MEDS ORDERED: ALBUTEROL SULFATE 2.5 MG/3 ML NEBU NEB ONE (13:30)
[2020-06-02] MEDS ORDERED: IPRATROPIUM BROMIDE 0.5 MG/2.5 ML NEBU NEB ONE (13:30)
[2020-06-02] MEDS ORDERED: predniSONE 20 MG TABLET PO ONE (13:45)
[2020-06-02] MEDS ORDERED: predniSONE 20 MG TABLET ONE (13:50)
--- NOTE | 2020-06-02 14:10 | NUR ---
PT WAS D/C'd TO HOME. D/C INSTRUCTIONS GIVEN TO THE PT BY DR CALIXTO.
[2020-06-02 14:15] VITALS: BP 141/71
== END 2020-06-02 14:22 | disposition home or self-care (01) ==
LOC: ER 13:16
DX: J45.901 Unspecified asthma with (acute) exacerbation (principal); Z20.828 Contact with and (suspected) exposure to other viral communicable diseases; J44.9 Chronic obstructive pulmonary disease, unspecified; G62.9 Polyneuropathy, unspecified; E78.00 Pure hypercholesterolemia, unspecified; Z88.1 Allergy status to other antibiotic agents; Z88.2 Allergy status to sulfonamides; Z88.8 Allergy status to other drugs, medicaments and biological substances; F41.9 Anxiety disorder, unspecified
CPT/HCPCS: 71045; 87426; 94640; 99284; J7512; A4663; J3590

== ENCOUNTER 2020-07-14 18:13 | Emergency (ER) | payer MEDICARE, OTHER ==
[~2020-07-14] VITALS: Ht 175.3 cm; Wt 67.1 kg
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
[2020-07-14] MEDS ORDERED: TDAP DIPH,PERTUSS,TET VAC/PF 0.5 ML DISP.SYRIN IM ONE ×2 (19:00→19:11)
--- NOTE | 2020-07-14 19:35 | NUR ---
right foot cleansed with saline and iodine, dressing placed over wound, tolerated procedure well
--- NOTE | 2020-07-14 19:40 | NUR ---
Patient discharged to home in stable condition. Able to ambulate with steady gait, all needs met. Written and verbal after care instructions given. Patient verbalizes understanding of instructions. Stressed follow up or return to ER for worsening s/s.
[2020-07-14 19:46] VITALS: BP 130/71
== END 2020-07-14 19:40 | disposition home or self-care (01) ==
LOC: ER 18:13
DX: S91.331A Puncture wound without foreign body, right foot, initial encounter (principal); W22.8XXA Striking against or struck by other objects, initial encounter; Y92.89 Other specified places as the place of occurrence of the external cause
CPT/HCPCS: 73630; 90715; A4217; A4663

== ENCOUNTER 2021-01-11 12:54 | Emergency (ER) | payer MEDICARE, BC ==
[~2021-01-11] VITALS: Ht 175.3 cm; Wt 67.1 kg
[2021-01-11] MEDS ORDERED: ALBUTEROL SULFATE 2.5 MG/3 ML NEBU NEB ONE (13:45)
[2021-01-11] MEDS ORDERED: DEXAMETHASONE SOD PHOSPHATE 4 MG INJ IM ONE (13:45)
[2021-01-11] MEDS ORDERED: ALBUTEROL SULFATE 2.5 MG/3 ML NEBU ONE (13:45)
[2021-01-11] MEDS ORDERED: DEXAMETHASONE SOD PHOSPHATE 10 MG INJ ONE (13:52)
[2021-01-11] MEDS ORDERED: IBUPROFEN 600 MG TABLET PO ONE (14:00)
[2021-01-11] MEDS ORDERED: IBUPROFEN 600 MG TABLET ONE (14:05)
--- NOTE | 2021-01-11 14:06 | NUR ---
PT WAS EVALUATED BY DR PENN. PT WAS D/C'd TO HOME. D/C INSTRUCTIONS GIVENTO THE PT BY DR PENN.
[2021-01-11 14:07] VITALS: BP 141/73
== END 2021-01-11 14:07 | disposition home or self-care (01) ==
LOC: ER 12:54
DX: R07.0 Pain in throat (principal); G89.21 Chronic pain due to trauma; M54.2 Cervicalgia; I10 Essential (primary) hypertension; Z88.1 Allergy status to other antibiotic agents; Z88.2 Allergy status to sulfonamides; G62.9 Polyneuropathy, unspecified; J44.9 Chronic obstructive pulmonary disease, unspecified; F41.9 Anxiety disorder, unspecified; S13.4XXS Sprain of ligaments of cervical spine, sequela; Y09 Assault by unspecified means
CPT/HCPCS: 94640; 96372; 99283; J1100; A4663

== ENCOUNTER 2021-01-20 18:53 | Emergency (ER) | payer MEDICARE, BC ==
[~2021-01-20] VITALS: Ht 175.3 cm; Wt 67.6 kg
--- NOTE | 2021-01-20 19:10 | NUR ---
Pt came in for nose bleed, A/O x4, no SOB or labored breathing. Afebrile. Ambulatory. Accompanied by , at bedside. Dr. Dee at bedside for MSE.
[2021-01-20] MEDS ORDERED: PRED20TA PO (19:24)
[2021-01-20] MEDS ORDERED: ALBU8.5H8 IH (19:24)
[2021-01-20] MEDS ORDERED: ALBUTEROL SULFATE 2.5 MG/3 ML NEBU NEB ONE (19:30)
[2021-01-20] MEDS ORDERED: IPRATROPIUM BROMIDE 0.5 MG/2.5 ML NEBU NEB ONE (19:30)
[2021-01-20] MEDS ORDERED: predniSONE 20 MG TABLET ONE (19:30)
[2021-01-20] MEDS ORDERED: predniSONE 10 MG TABLET PO ONE (19:30)
[2021-01-20] MEDS ORDERED: HYDR-4209 PO (19:31)
[2021-01-20] MEDS ORDERED: ALBUTEROL SULFATE 2.5 MG/3 ML NEBU ONE (19:36)
[2021-01-20] MEDS ORDERED: IPRATROPIUM BROMIDE 0.5 MG/2.5 ML NEBU ONE (19:36)
--- NOTE | 2021-01-20 20:10 | NUR ---
Patient discharged to home in stable condition, A/O x4, no SOB or labored breathing. Afebrile. Ambulatory. No active nose bleed. No c/o pain or discomfort. Accompanied by . Written and verbal after care instructions given. Patient verbalizes understanding of instructions. Stressed follow up or return to ER for worsening s/s. Steady gait.
[2021-01-20 20:12] VITALS: BP 152/66
== END 2021-01-20 20:13 | disposition home or self-care (01) ==
LOC: ER 18:58
DX: J45.901 Unspecified asthma with (acute) exacerbation (principal); J44.9 Chronic obstructive pulmonary disease, unspecified; F32.9 Major depressive disorder, single episode, unspecified; F41.9 Anxiety disorder, unspecified; Z88.1 Allergy status to other antibiotic agents; Z88.2 Allergy status to sulfonamides; Z82.49 Family history of ischemic heart disease and other diseases of the circulatory system; G47.00 Insomnia, unspecified; Z79.899 Other long term (current) drug therapy
CPT/HCPCS: 94640; 99283; J7512; A4663; J3590

== ENCOUNTER 2021-02-26 14:39 | Emergency (ER) | payer MEDICARE, BC ==
[~2021-02-26] VITALS: Ht 175.3 cm; Wt 67.1 kg
[~2021-02-26 14:39] MED LIST changes: +ALBU8.5H8 IH; +HYDR-4209 PO; +PRED20TA PO
[2021-02-26] MEDS ORDERED: AMOX500C2 PO (15:05)
--- NOTE | 2021-02-26 15:31 | NUR ---
PT WAS EVALUATED BY DR CALIXTO. PT WAS D/C'd TO HOME. D/C INSTRUCTIONS GIVEN TO THE PT BY DR CALIXTO.
[2021-02-26 15:34] VITALS: BP 144/63
== END 2021-02-26 15:34 | disposition home or self-care (01) ==
LOC: ER 14:39
DX: H66.93 Otitis media, unspecified, bilateral (principal); Z88.1 Allergy status to other antibiotic agents; Z88.2 Allergy status to sulfonamides; J44.9 Chronic obstructive pulmonary disease, unspecified; E78.00 Pure hypercholesterolemia, unspecified; F32.9 Major depressive disorder, single episode, unspecified; F41.9 Anxiety disorder, unspecified; Z79.899 Other long term (current) drug therapy
CPT/HCPCS: A4663

== ENCOUNTER 2021-03-15 08:02 | Emergency (ER) | payer MEDICARE, BC ==
[~2021-03-15] VITALS: Ht 175.3 cm; Wt 67.1 kg
[~2021-03-15 08:02] MED LIST changes: +AMOX500C2 PO
--- NOTE | 2021-03-15 08:40 | NUR ---
pt refused blood draw and said the main reason she is here to be hydrated.
[2021-03-15] MEDS ORDERED: BISACODYL 10 MG SUPP.RECT RC ONE ×2 (08:45→09:05)
[2021-03-15] MEDS ORDERED: IV NORMAL SALINE 1000 ML BAG IV ONE (08:45)
--- NOTE | 2021-03-15 08:53 | NUR ---
Pt refusing blood draw at this time, states "I think I just need IV hydration ".
--- NOTE | 2021-03-15 09:55 | NUR ---
Pt resting in norma with NAD noted. Pt states "I feel much better".
--- NOTE | 2021-03-15 11:11 | NUR ---
Patient discharged to home in stable condition. Written and verbal after care instructions given. Patient verbalizes understanding of instructions. Stressed follow up or return to ER for worsening s/s.pt walks in steady gait, no sign of distress. pt says feels better.
[2021-03-15 11:15] VITALS: BP 121/79
== END 2021-03-15 11:16 | disposition home or self-care (01) ==
LOC: ER 08:02
DX: T67.5XXA Heat exhaustion, unspecified, initial encounter (principal); X30.XXXA Exposure to excessive natural heat, initial encounter; Y93.01 Activity, walking, marching and hiking; Y92.89 Other specified places as the place of occurrence of the external cause; J44.9 Chronic obstructive pulmonary disease, unspecified; E78.00 Pure hypercholesterolemia, unspecified; F32.9 Major depressive disorder, single episode, unspecified; F41.9 Anxiety disorder, unspecified; Z88.1 Allergy status to other antibiotic agents; Z88.2 Allergy status to sulfonamides; Z79.899 Other long term (current) drug therapy
CPT/HCPCS: A4663; J7030

== ENCOUNTER 2021-05-14 15:39 | Emergency (ER) | payer MEDICARE, BC ==
[~2021-05-14] VITALS: Ht 175.3 cm; Wt 67.1 kg
[2021-05-14] MEDS ORDERED: IPRATROPIUM BROMIDE 0.5 MG/2.5 ML NEBU NEB ONE (16:30)
[2021-05-14] MEDS ORDERED: ALBUTEROL SULFATE 2.5 MG/3 ML NEBU NEB ONE (16:30)
[2021-05-14] MEDS ORDERED: predniSONE 50 MG TABLET PO ONE (16:30)
--- NOTE | 2021-05-14 16:32 | NUR ---
PT IS IN ROOM #1B. DR VICTOR EVALUATED THE PT.
[2021-05-14] MEDS ORDERED: predniSONE 50 MG TABLET ONE (16:38)
[2021-05-14] MEDS ORDERED: IPRATROPIUM BROMIDE 0.5 MG/2.5 ML NEBU ONE (16:43)
[2021-05-14] MEDS ORDERED: ALBUTEROL SULFATE 2.5 MG/3 ML NEBU ONE (16:43)
[2021-05-14] MEDS ORDERED: ALBU8.5H8 INH (17:07)
[2021-05-14] MEDS ORDERED: PRED20TA PO (17:07)
--- NOTE | 2021-05-14 17:39 | NUR ---
PT WAS D/C'd TO HOME. D/C INSTRUCTIONS GIVEN TO THE PT BY DR RODRIGUEZ.
[2021-05-14 17:41] VITALS: BP 141/72
== END 2021-05-14 17:42 | disposition home or self-care (01) ==
LOC: ER 15:40
DX: J45.901 Unspecified asthma with (acute) exacerbation (principal); Z77.120 Contact with and (suspected) exposure to mold (toxic); Z88.1 Allergy status to other antibiotic agents; Z88.2 Allergy status to sulfonamides; Z88.8 Allergy status to other drugs, medicaments and biological substances; Z82.49 Family history of ischemic heart disease and other diseases of the circulatory system
CPT/HCPCS: 94640; 99283; J7512; A4663; J3590

== ENCOUNTER 2021-06-06 14:04 | Emergency (ER) | payer MEDICARE, BC ==
[~2021-06-06] VITALS: Ht 175.3 cm; Wt 67.1 kg
[~2021-06-06 14:04] MED LIST changes: +ALBU8.5H8 INH
[2021-06-06] MEDS ORDERED: CEPH500C2 PO (14:56)
[2021-06-06] MEDS ORDERED: PHEN-895 PO (14:56)
[2021-06-06] MEDS ORDERED: DIAZ5TAB PO (14:56)
[2021-06-06 14:58] LABS: *BILIRUBIN,URIN NEGATIVE (NEGATIVE); *COLOR,URINE YELLOW (YELLOW); *KETONES,URINE NEGATIVE (NEGATIVE); *UROBILINOGEN,URINE 0.2 E.U./dl (NORMAL); LEUKOCYTE ESTERASE ,URINE 2+ (NEGATIVE); NITRITE, URINE NEGATIVE (NEGATIVE); PH,URINE 5.5 (5.0-8.0); UGLUCOSE NEGATIVE (NEGATIVE)
[2021-06-06 15:00] LABS: *BLOOD, URINE TRACE (NEGATIVE); *CLARITY,URINE HAZY (CLEAR)
[2021-06-06 15:06] LABS: BACTERIA,URINE FEW /HPF (NONE SEEN); RBC,URINE 0-3 /HPF (0-3); SQUAMOUS EPITHELIAL CELL,UR MODERATE /HPF (NONE SEEN)
--- NOTE | 2021-06-06 15:10 | NUR ---
Patient discharged to home in stable condition. Written and verbal after care instructions given. Patient verbalizes understanding of instructions. Stressed follow up or return to ER for worsening s/s.
== END 2021-06-06 15:10 | disposition home or self-care (01) ==
LOC: ER 14:04
DX: N39.0 Urinary tract infection, site not specified (principal); Z76.0 Encounter for issue of repeat prescription; J44.9 Chronic obstructive pulmonary disease, unspecified; F17.200 Nicotine dependence, unspecified, uncomplicated; Z82.49 Family history of ischemic heart disease and other diseases of the circulatory system; Z88.1 Allergy status to other antibiotic agents; Z88.2 Allergy status to sulfonamides; E78.00 Pure hypercholesterolemia, unspecified; F32.A Depression, unspecified; F41.9 Anxiety disorder, unspecified; Z79.899 Other long term (current) drug therapy
CPT/HCPCS: 87077; 87086; A4663

== ENCOUNTER 2021-07-06 11:04 | Emergency (ER) | payer MEDICARE, BC ==
[~2021-07-06] VITALS: Ht 172.7 cm; Wt 67.1 kg
[~2021-07-06 11:04] MED LIST changes: +CEPH500C2 PO; +PHEN-895 PO
[2021-07-06 11:37] LABS: *BILIRUBIN,URIN NEGATIVE (NEGATIVE); *BLOOD, URINE NEGATIVE (NEGATIVE); *CLARITY,URINE CLEAR (CLEAR); *COLOR,URINE YELLOW (YELLOW); *KETONES,URINE NEGATIVE (NEGATIVE); *UROBILINOGEN,URINE 0.2 E.U./dl (NORMAL); LEUKOCYTE ESTERASE ,URINE NEGATIVE (NEGATIVE); NITRITE, URINE NEGATIVE (NEGATIVE); UGLUCOSE NEGATIVE (NEGATIVE)
[2021-07-06] MEDS ORDERED: CEFTRIAXONE 500 MG VIAL IM ONE (12:00)
[2021-07-06] MEDS ORDERED: DOXY-326 PO (12:04)
[2021-07-06] MEDS ORDERED: CEFTRIAXONE 500 MG VIAL ONE (12:04)
[2021-07-06] MEDS ORDERED: LIDOCAINE HCL 2% 20 ML VIAL ONE (12:05)
--- NOTE | 2021-07-06 12:21 | NUR ---
PT WAS EVALUATED BY DR TIM.PT WAS MEDICATED ACCORDING TO DR TIM ORDERS. NO S/S OF ADVERSE REACTION, NO ALLERGIC REACTION. PT WAS D/C'd TO HOME. D/C INSTRUCTIONS GIVEN TO THE PT BY DR TIM.
[2021-07-06 12:24] VITALS: BP 138/76
[2021-07-09 02:06] LABS: *GC NAA Negative (Negative); *TRIC.VAG. NAA Negative (Negative)
== END 2021-07-06 12:25 | disposition home or self-care (01) ==
LOC: ER 11:06
DX: N34.2 Other urethritis (principal); Z87.440 Personal history of urinary (tract) infections; Z82.49 Family history of ischemic heart disease and other diseases of the circulatory system; Z88.1 Allergy status to other antibiotic agents; Z88.2 Allergy status to sulfonamides; J44.9 Chronic obstructive pulmonary disease, unspecified; F41.9 Anxiety disorder, unspecified; Z79.899 Other long term (current) drug therapy
CPT/HCPCS: 81003; 87086; 87491; 96372; 99283; J0696; J3490; A4663

== ENCOUNTER 2021-07-20 19:16 | Emergency (ER) | payer MEDICARE, BC ==
[~2021-07-20] VITALS: Ht 172.7 cm; Wt 67.1 kg
[~2021-07-20 19:16] MED LIST changes: +DOXY-326 PO
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
--- NOTE | 2021-07-20 20:52 | NUR ---
[employer] at bedside to speak with PT
[2021-07-20 21:39] LABS: *BILIRUBIN,URIN NEGATIVE (NEGATIVE); *BLOOD, URINE NEGATIVE (NEGATIVE); *CLARITY,URINE CLEAR (CLEAR); *COLOR,URINE LIGHT YELLOW (YELLOW); *KETONES,URINE NEGATIVE (NEGATIVE); *UROBILINOGEN,URINE 0.2 E.U./dl (NORMAL); LEUKOCYTE ESTERASE ,URINE NEGATIVE (NEGATIVE); NITRITE, URINE NEGATIVE (NEGATIVE); PH,URINE 5.5 (5.0-8.0); UGLUCOSE NEGATIVE (NEGATIVE)
[2021-07-20] MEDS ORDERED: DOXY100C5 PO (21:49)
[2021-07-20] MEDS ORDERED: DOXYCYCLINE HYCLATE 100 MG TABLET PO ONE (22:00)
[2021-07-20] MEDS ORDERED: METRONIDAZOLE 500 MG TABLET PO ONE (22:00)
[2021-07-20] MEDS ORDERED: CEFTRIAXONE 500 MG VIAL IM ONE (22:00)
[2021-07-20] MEDS ORDERED: IBUPROFEN 600 MG TABLET PO ONE (22:00)
[2021-07-20] MEDS ORDERED: METRONIDAZOLE 500 MG TABLET ONE (22:21)
[2021-07-20] MEDS ORDERED: IBUPROFEN 600 MG TABLET ONE (22:21)
[2021-07-20] MEDS ORDERED: DOXYCYCLINE HYCLATE 100 MG TABLET ONE (22:21)
[2021-07-20] MEDS ORDERED: CEFTRIAXONE 500 MG VIAL ONE (22:22)
[2021-07-20] MEDS ORDERED: IBUP-1955 PO (22:35)
[2021-07-20 22:47] VITALS: BP 130/82
[2021-07-23 04:06] LABS: *GC NAA Negative (Negative)
[2021-07-23 23:06] LABS: *TRIC.VAG. NAA Negative (Negative)
== END 2021-07-20 22:47 | disposition home or self-care (01) ==
LOC: ER 19:22
DX: T74.21XA Adult sexual abuse, confirmed, initial encounter (principal); Y07.9 Unspecified perpetrator of maltreatment and neglect; Z11.3 Encounter for screening for infections with a predominantly sexual mode of transmission; Z88.1 Allergy status to other antibiotic agents; Z88.2 Allergy status to sulfonamides; Z82.49 Family history of ischemic heart disease and other diseases of the circulatory system; J45.909 Unspecified asthma, uncomplicated; F32.A Depression, unspecified; F41.9 Anxiety disorder, unspecified; Z79.899 Other long term (current) drug therapy; E78.00 Pure hypercholesterolemia, unspecified
CPT/HCPCS: 81003; 87086; 87491; 96372; 99284; J0696; A4663

== ENCOUNTER 2021-09-04 18:35 | Emergency (ER) | payer MEDICARE, BC ==
[~2021-09-04] VITALS: Ht 172.7 cm; Wt 67.1 kg
[~2021-09-04 18:35] MED LIST changes: +DOXY100C5 PO; +IBUP-1955 PO
[2021-09-04] MEDS ORDERED: predniSONE 20 MG TABLET PO ONE (20:45)
[2021-09-04] MEDS ORDERED: IPRATROPIUM BROMIDE 0.5 MG/2.5 ML NEBU NEB ONE (20:45)
[2021-09-04] MEDS ORDERED: ALBUTEROL SULFATE 2.5 MG/3 ML NEBU NEB ONE (20:45)
[2021-09-04] MEDS ORDERED: ALBUTEROL SULFATE 2.5 MG/3 ML NEBU ONE (21:00)
[2021-09-04] MEDS ORDERED: IPRATROPIUM BROMIDE 0.5 MG/2.5 ML NEBU ONE (21:00)
[2021-09-04] MEDS ORDERED: predniSONE 20 MG TABLET ONE (21:03)
[2021-09-04] MEDS ORDERED: ALBU8.5H8 IH (21:03)
[2021-09-04] MEDS ORDERED: PRED20TA PO (21:03)
[2021-09-04 21:21] VITALS: BP 135/87
--- NOTE | 2021-09-04 21:21 | NUR ---
Patient discharged to home in stable condition. Written and verbal after care instructions given. Patient verbalizes understanding of instructions. Stressed follow up or return to ER for worsening s/s. Steady gait, no SOB or labored breathing.
== END 2021-09-04 21:21 | disposition home or self-care (01) ==
LOC: ER 18:41
DX: J44.1 Chronic obstructive pulmonary disease with (acute) exacerbation (principal); E78.00 Pure hypercholesterolemia, unspecified; F41.9 Anxiety disorder, unspecified; G47.00 Insomnia, unspecified; Z88.1 Allergy status to other antibiotic agents; Z88.2 Allergy status to sulfonamides; Z88.8 Allergy status to other drugs, medicaments and biological substances; Z20.822 Contact with and (suspected) exposure to COVID-19; R03.0 Elevated blood-pressure reading, without diagnosis of hypertension
CPT/HCPCS: 71045; 87426; 94640; 99284; J7512; A4663; J3590

== ENCOUNTER 2021-11-20 14:52 | Emergency (ER) | payer MEDICARE, BC ==
[~2021-11-20] VITALS: Ht 172.7 cm; Wt 67.6 kg
--- NOTE | 2021-11-20 14:59 | NUR ---
patient being brought in to room 4b. patient complains of a possible urinary tract infection per patient statement.
--- NOTE | 2021-11-20 15:15 | NUR ---
urine collected and sent to lab
[2021-11-20 15:25] LABS: *BILIRUBIN,URIN NEGATIVE (NEGATIVE); *CLARITY,URINE CLEAR (CLEAR); *COLOR,URINE YELLOW (YELLOW); *KETONES,URINE NEGATIVE (NEGATIVE); *UROBILINOGEN,URINE 0.2 E.U./dl (NORMAL); LEUKOCYTE ESTERASE ,URINE NEGATIVE (NEGATIVE); NITRITE, URINE NEGATIVE (NEGATIVE); UGLUCOSE NEGATIVE (NEGATIVE)
--- NOTE | 2021-11-20 15:28 | NUR ---
patient being seen and evaluated by Dr. Ledesma
[2021-11-20 15:29] LABS: *BLOOD, URINE TRACE (NEGATIVE)
[2021-11-20] MEDS ORDERED: CEPH500C2 PO (15:32)
--- NOTE | 2021-11-20 15:38 | NUR ---
discharge insrtuctions given to patient and RX reviewed with patient.
[2021-11-20 16:22] LABS: BACTERIA,URINE R /HPF (NONE SEEN); SQUAMOUS EPITHELIAL CELL,UR FEW /HPF (NONE SEEN); WBC,URINE 0-3 /HPF (0-3)
== END 2021-11-20 15:42 | disposition home or self-care (01) ==
LOC: ER 14:52
DX: R30.0 Dysuria (principal); Z82.49 Family history of ischemic heart disease and other diseases of the circulatory system; Z88.1 Allergy status to other antibiotic agents; Z88.2 Allergy status to sulfonamides; J45.909 Unspecified asthma, uncomplicated; Z79.899 Other long term (current) drug therapy; F41.9 Anxiety disorder, unspecified
CPT/HCPCS: 87086; A4663

== ENCOUNTER 2021-12-23 15:03 | Emergency (ER) | payer MEDICARE, BC ==
[~2021-12-23] VITALS: Ht 172.7 cm; Wt 68.0 kg
--- NOTE | 2021-12-23 15:22 | NUR ---
DR Porter at the bedside for MSE.
[2021-12-23] MEDS ORDERED: PRED20TA PO ×2 (15:39→16:18)
[2021-12-23] MEDS ORDERED: PSEU120T83 PO ×2 (15:39→16:18)
[2021-12-23] MEDS ORDERED: FEXO180T94 PO ×2 (15:39→16:18)
[2021-12-23] MEDS ORDERED: CARB-277 EACH EAR ×2 (15:39→16:18)
[2021-12-23] MEDS ORDERED: FLUT16SP16 BNOSTRILS ×2 (15:39→16:18)
[2021-12-23 16:17] VITALS: BP 120/76
== END 2021-12-23 16:38 | disposition home or self-care (01) ==
LOC: ER 16:32
DX: J06.9 Acute upper respiratory infection, unspecified (principal); B97.89 Other viral agents as the cause of diseases classified elsewhere; Z20.822 Contact with and (suspected) exposure to COVID-19; H92.02 Otalgia, left ear; Z82.49 Family history of ischemic heart disease and other diseases of the circulatory system; J45.909 Unspecified asthma, uncomplicated; Z88.1 Allergy status to other antibiotic agents; Z88.2 Allergy status to sulfonamides; Z88.8 Allergy status to other drugs, medicaments and biological substances; E78.00 Pure hypercholesterolemia, unspecified; F41.9 Anxiety disorder, unspecified
CPT/HCPCS: A4663

== ENCOUNTER 2022-01-16 00:32 | Emergency (ER) | payer MEDICARE, BC ==
[~2022-01-16] VITALS: Ht 172.7 cm; Wt 65.3 kg
[~2022-01-16 00:32] MED LIST changes: +CARB-277 EACH EAR; +FEXO180T94 PO; +FLUT16SP16 BNOSTRILS; +PSEU120T83 PO
[2022-01-16] MEDS ORDERED: FUROSEMIDE 40 MG/4 ML VIAL IV ONE (04:45)
[2022-01-16] MEDS ORDERED: NITROGLYCERIN 0.4 MG/TAB BOTTLE SL ONE ×2 (04:45→04:54)
[2022-01-16] MEDS ORDERED: FUROSEMIDE 40 MG/4 ML VIAL ONE (04:54)
[2022-01-16] MEDS ORDERED: predniSONE 20 MG TABLET ONE (04:59)
[2022-01-16] MEDS ORDERED: IPRATROPIUM BROMIDE 0.5 MG/2.5 ML NEBU NEB ONE ×2 (05:00)
[2022-01-16] MEDS ORDERED: predniSONE 20 MG TABLET PO ONE (05:00)
[2022-01-16] MEDS ORDERED: ALBUTEROL SULFATE 2.5 MG/3 ML NEBU NEB ONE ×2 (05:00)
[2022-01-16] MEDS ORDERED: ALBUTEROL SULFATE 2.5 MG/3 ML NEBU ONE ×2 (05:06→05:26)
[2022-01-16] MEDS ORDERED: IPRATROPIUM BROMIDE 0.5 MG/2.5 ML NEBU ONE ×2 (05:06→05:26)
--- NOTE | 2022-01-16 05:13 | NUR ---
Patient is a/ox4, able to walk with steady gait
[2022-01-16] MEDS ORDERED: ALBU8.5H8 INH (06:32)
[2022-01-16] MEDS ORDERED: PRED20TA PO (06:32)
--- NOTE | 2022-01-16 06:44 | NUR ---
Patient discharged to home in stable condition. Written and verbal after care instructions given. Patient verbalizes understanding of instructions. Stressed follow up or return to ER for worsening s/s. Patient is a/ox4, NAD noted. Patient is able to walk with steady gait
[2022-01-16 06:45] VITALS: BP 132/78
== END 2022-01-16 06:45 | disposition home or self-care (01) ==
LOC: ER 00:37
DX: J45.901 Unspecified asthma with (acute) exacerbation (principal); Z82.49 Family history of ischemic heart disease and other diseases of the circulatory system; Z88.1 Allergy status to other antibiotic agents; Z88.2 Allergy status to sulfonamides; Z88.8 Allergy status to other drugs, medicaments and biological substances; E78.00 Pure hypercholesterolemia, unspecified; F41.9 Anxiety disorder, unspecified; Z79.899 Other long term (current) drug therapy
CPT/HCPCS: 71045; 93005; 94640 ×2; 99285; J7512; J1940; J3590

== ENCOUNTER 2022-02-03 20:30 | Emergency (ER) | payer MEDICARE, BC ==
[~2022-02-03] VITALS: Ht 165.1 cm; Wt 68.9 kg
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
[2022-02-03 23:33] LABS: *BILIRUBIN,URIN NEGATIVE (NEGATIVE); *BLOOD, URINE NEGATIVE (NEGATIVE); *CLARITY,URINE CLEAR (CLEAR); *COLOR,URINE YELLOW (YELLOW); *KETONES,URINE NEGATIVE (NEGATIVE); *UROBILINOGEN,URINE 0.2 E.U./dl (NORMAL); LEUKOCYTE ESTERASE ,URINE NEGATIVE (NEGATIVE); NITRITE, URINE NEGATIVE (NEGATIVE); PH,URINE 6.5 (5.0-8.0); UGLUCOSE NEGATIVE (NEGATIVE)
[2022-02-03 23:33] LABS: HEMATOCRIT 36.9 % (31.2-41.9); MEAN CORPUSCULAR HEMOGLOBIN 31.6 uug (24.7-32.8); MEAN CORPUSCULAR VOLUME 93.8 fL (75.5-95.3); PLATELET COUNT (AUTO) 213 K/uL (179-408)
[2022-02-03 23:34] LABS: CARBON DIOXIDE 33 mmol/L (21-32); CHLORIDE 105 mmol/L (98-107); GLUCOSE 123 mg/dL (74-106); UREA NITROGEN, BLOOD 12 mg/dL (7-18)
[2022-02-03 23:47] LABS: THYROID STIMULATING HORMONE 1.181 mIU/mL (0.358-3.740)
[2022-02-03 23:49] LABS: *AMPHETAMINE, URINE NEGATIVE (NEGATIVE); *CANNABINOID, URINE NEGATIVE (NEGATIVE); *COCCAINE, URINE NEGATIVE (NEGATIVE); *OPIATE, URINE NEGATIVE (NEGATIVE); *PHENCYCLIDINE SCREEN,URINE NEGATIVE (NEGATIVE)
[2022-02-03 23:49] LABS: ETHANOL < 3 MG/DL (0-0)
[2022-02-03 23:51] LABS: ALANINE AMINOTRANSFERASE 21 U/L (14-59); ALKALINE PHOSPHATASE 112 U/L (50-136); ASPARTATE AMINOTRANSFERASE 15 U/L (15-37); BILIRUBIN,DIRECT 0.1 mg/dL (0.0-0.2); BILIRUBIN,TOTAL 0.2 mg/dL (0.2-1.0); TOTAL PROTEIN, SERUM 6.6 g/dL (6.4-8.2)
[2022-02-03 23:56] LABS: ACETAMINOPHEN < 2.0 ug/mL (10-30)
[2022-02-04] MEDS ORDERED: ALBUTEROL SULFATE 2.5 MG/3 ML NEBU NEB ONE (01:30)
[2022-02-04] MEDS ORDERED: ALBUTEROL SULFATE 2.5 MG/3 ML NEBU ONE (01:30)
--- NOTE | 2022-02-04 01:35 | NUR ---
Pt placed on breathing tx by RT. Currently on HHHN, RT states that pt is doing fine, satting well with only mild expritory wheezing.
--- NOTE | 2022-02-04 01:51 | NUR ---
Pt given dc instructions and confirmed understanding of aftercare. Pt signed out after final VS checked and wnl. NAD, PE WNL. Pt ambulated out of dept with steady gait. dced home with
[2022-02-04 02:11] VITALS: BP 129/72
== END 2022-02-04 02:00 | disposition home or self-care (01) ==
LOC: ER 20:32
DX: R06.00 Dyspnea, unspecified (principal); R91.8 Other nonspecific abnormal finding of lung field; Z88.1 Allergy status to other antibiotic agents; Z88.8 Allergy status to other drugs, medicaments and biological substances; F41.9 Anxiety disorder, unspecified; J45.909 Unspecified asthma, uncomplicated; E78.00 Pure hypercholesterolemia, unspecified; R30.0 Dysuria
CPT/HCPCS: 36415; 71045; 84443; 84484; 85025; 87086; 93005; A4663; G0480

== ENCOUNTER 2022-03-08 15:42 | Emergency (ER) | payer MEDICARE, BC ==
[~2022-03-08] VITALS: Ht 172.7 cm; Wt 74.8 kg
[2022-03-08] MEDS ORDERED: IPRATROPIUM BROMIDE 0.5 MG/2.5 ML NEBU ONE (16:24)
[2022-03-08] MEDS ORDERED: ALBUTEROL SULFATE 2.5 MG/3 ML NEBU ONE (16:24)
[2022-03-08] MEDS ORDERED: ALBUTEROL SULFATE 2.5 MG/ 0.5 ML NEBU ONE (16:26)
[2022-03-08] MEDS ORDERED: ALBU6.7H9 INH (16:29)
[2022-03-08] MEDS ORDERED: PRED50TA PO (16:29)
--- NOTE | 2022-03-08 16:29 | NUR ---
PT IS IN ROOM #2B. DR SUTHERLAND EVALUATED THE PT.
[2022-03-08] MEDS ORDERED: ALBUTEROL SULFATE 2.5 MG/ 0.5 ML NEBU NEB ONE (16:30)
[2022-03-08] MEDS ORDERED: IPRATROPIUM BROMIDE 0.5 MG/2.5 ML NEBU NEB ONE (16:30)
[2022-03-08] MEDS ORDERED: predniSONE 10 MG TABLET PO SCH (16:30)
[2022-03-08] MEDS ORDERED: predniSONE 50 MG TABLET ONE (16:41)
--- NOTE | 2022-03-08 17:05 | NUR ---
PT WAS D/C'd TO HOME. D/C INSTRUCTIONS GIVEN TO THE PT BY DR SUTHERLAND.
[2022-03-08 17:06] VITALS: BP 141/77
[2022-03-08] MEDS ORDERED: IPRATROPIUM BROMIDE 0.5 MG/2.5 ML NEBU NEB SCH (19:30)
[2022-03-08] MEDS ORDERED: ALBUTEROL SULFATE 2.5 MG/3 ML NEBU NEB SCH (19:30)
== END 2022-03-08 18:03 | disposition home or self-care (01) ==
LOC: ER 15:42
DX: J45.901 Unspecified asthma with (acute) exacerbation (principal); Z88.1 Allergy status to other antibiotic agents; Z88.2 Allergy status to sulfonamides; Z88.8 Allergy status to other drugs, medicaments and biological substances; Z82.49 Family history of ischemic heart disease and other diseases of the circulatory system; Z79.899 Other long term (current) drug therapy
CPT/HCPCS: 99283; 94640; J7512; A4663; J3590

== ENCOUNTER 2022-03-23 17:45 | Emergency (ER) | payer MEDICARE, BC ==
[~2022-03-23] VITALS: Ht 172.7 cm; Wt 67.6 kg
[~2022-03-23 17:45] MED LIST changes: +ALBU6.7H9 INH; +PRED50TA PO
[2022-03-23] MEDS ORDERED: IPRATROPIUM BROMIDE 0.5 MG/2.5 ML NEBU NEB ONE (19:30)
[2022-03-23] MEDS ORDERED: ALBUTEROL SULFATE 2.5 MG/ 0.5 ML NEBU NEB ONE (19:30)
[2022-03-23] MEDS ORDERED: predniSONE 20 MG TABLET PO ONE (19:30)
[2022-03-23] MEDS ORDERED: predniSONE 20 MG TABLET ONE (19:35)
[2022-03-23] MEDS ORDERED: IPRATROPIUM BROMIDE 0.5 MG/2.5 ML NEBU ONE (19:39)
[2022-03-23] MEDS ORDERED: ALBUTEROL SULFATE 2.5 MG/3 ML NEBU ONE (19:39)
[2022-03-23] MEDS ORDERED: ALBUTEROL SULFATE 2.5 MG/ 0.5 ML NEBU ONE (19:40)
[2022-03-23] MEDS ORDERED: PRED20TA PO (20:06)
[2022-03-23] MEDS ORDERED: NEOMY/POLYMYX B/HC OPHT DROP 7.5 ML BOTTLE ONE (20:10)
[2022-03-23] MEDS ORDERED: NEOMY/POLYMYX B/HC OTIC SOL 10 ML BOTTLE OT ONE (20:15)
[2022-03-23 20:57] VITALS: BP 120/60
== END 2022-03-23 20:57 | disposition home or self-care (01) ==
LOC: ER 17:45
DX: J45.901 Unspecified asthma with (acute) exacerbation (principal); H60.502 Unspecified acute noninfective otitis externa, left ear; E78.00 Pure hypercholesterolemia, unspecified; Z82.49 Family history of ischemic heart disease and other diseases of the circulatory system; Z88.1 Allergy status to other antibiotic agents; Z88.2 Allergy status to sulfonamides; Z88.8 Allergy status to other drugs, medicaments and biological substances
CPT/HCPCS: 99283; 94640; J7512; A4663; J3590

== ENCOUNTER 2022-04-27 15:36 | Emergency (ER) | payer MEDICARE, BC ==
[~2022-04-27] VITALS: Ht 175.3 cm; Wt 67.6 kg
[2022-04-27] MEDS ORDERED: methylPREDNISolone SOD SUCC 125 MG/2 ML VIAL IV ONE (16:15)
[2022-04-27] MEDS ORDERED: ALBUTEROL SULFATE 2.5 MG/3 ML NEBU NEB ONE (16:15)
[2022-04-27] MEDS ORDERED: IPRATROPIUM BROMIDE 0.5 MG/2.5 ML NEBU NEB ONE (16:15)
[2022-04-27 16:34] LABS: HEMATOCRIT 38.3 % (31.2-41.9); MEAN CORPUSCULAR HEMOGLOBIN 31.1 uug (24.7-32.8); MEAN CORPUSCULAR VOLUME 95.2 fL (75.5-95.3); PLATELET COUNT (AUTO) 207 K/uL (179-408)
[2022-04-27] MEDS ORDERED: ALBUTEROL SULFATE 2.5 MG/3 ML NEBU ONE (16:48)
[2022-04-27] MEDS ORDERED: IPRATROPIUM BROMIDE 0.5 MG/2.5 ML NEBU ONE (16:48)
[2022-04-27] MEDS ORDERED: methylPREDNISolone SOD SUCC 125 MG/2 ML VIAL ONE (16:55)
[2022-04-27 17:03] LABS: CARBON DIOXIDE 29 mmol/L (21-32); CHLORIDE 105 mmol/L (98-107); CREATININE 1.2 mg/dL (0.6-1.3); GLUCOSE 89 mg/dL (74-106); POTASSIUM 3.9 mmol/L (3.5-5.1); UREA NITROGEN, BLOOD 16 mg/dL (7-18)
[2022-04-27] MEDS ORDERED: ALBU6.7H9 INH (17:56)
[2022-04-27] MEDS ORDERED: PRED20TA PO (17:56)
[2022-04-27 18:39] VITALS: BP 121/61
== END 2022-04-27 18:58 | disposition home or self-care (01) ==
LOC: ER 15:36
DX: J44.1 Chronic obstructive pulmonary disease with (acute) exacerbation (principal); Z20.822 Contact with and (suspected) exposure to COVID-19; R00.1 Bradycardia, unspecified; Z82.49 Family history of ischemic heart disease and other diseases of the circulatory system; Z88.1 Allergy status to other antibiotic agents; Z88.2 Allergy status to sulfonamides; Z88.8 Allergy status to other drugs, medicaments and biological substances; E78.00 Pure hypercholesterolemia, unspecified; Z79.899 Other long term (current) drug therapy; F41.9 Anxiety disorder, unspecified
CPT/HCPCS: 99285; 96374; 71045; 87426; 80048; 83880; 85025; 84484; 36415; 93005; 94640; J2930; A4663; J3590

== ENCOUNTER 2022-05-16 22:48 | Emergency (ER) | payer MEDICARE, BC ==
[~2022-05-16] VITALS: Ht 175.3 cm; Wt 67.6 kg
--- NOTE | 2022-05-17 00:30 | NUR ---
Dr. Smiley at bedside for MSE.
[2022-05-17] MEDS ORDERED: ALBUTEROL SULFATE 2.5 MG/3 ML NEBU ONE (00:38)
[2022-05-17] MEDS ORDERED: IPRATROPIUM BROMIDE 0.5 MG/2.5 ML NEBU ONE (00:38)
[2022-05-17] MEDS ORDERED: IPRATROPIUM BROMIDE 0.5 MG/2.5 ML NEBU NEB ONE (00:45)
[2022-05-17] MEDS ORDERED: ALBUTEROL SULFATE 2.5 MG/3 ML NEBU NEB ONE (00:45)
[2022-05-17] MEDS ORDERED: predniSONE 20 MG TABLET PO ONE (00:45)
[2022-05-17] MEDS ORDERED: predniSONE 20 MG TABLET ONE (00:52)
[2022-05-17] MEDS ORDERED: FLUT16SP16 BNOSTRILS (01:09)
[2022-05-17] MEDS ORDERED: CETI-90 PO (01:09)
[2022-05-17] MEDS ORDERED: PRED20TA PO (01:10)
--- NOTE | 2022-05-17 01:33 | NUR ---
Patient discharged to home in stable condition. Written and verbal after care instructions given. Patient verbalizes understanding of instructions. Stressed follow up or return to ER for worsening s/s. Patient out of ER with steady gait, no acute signs of distress, VSS, all belongings taken.
[2022-05-17 01:35] VITALS: BP 137/68
== END 2022-05-17 01:36 | disposition home or self-care (01) ==
LOC: ER 22:48
DX: J45.901 Unspecified asthma with (acute) exacerbation (principal); Z82.49 Family history of ischemic heart disease and other diseases of the circulatory system; E78.00 Pure hypercholesterolemia, unspecified; Z79.899 Other long term (current) drug therapy; F32.A Depression, unspecified
CPT/HCPCS: 99283; 94640; J7512; A4663; J3590

== ENCOUNTER 2022-05-29 20:30 | Emergency (ER) | payer MEDICARE, BC ==
[~2022-05-29] VITALS: Ht 165.1 cm; Wt 67.6 kg
[~2022-05-29 20:30] MED LIST changes: +ALBU18HF2 INH; +CETI-90 PO; +CLOT15CR5 TP
--- NOTE | 2022-05-29 21:48 | NUR ---
Dr. Dee at bedside for MSE
[2022-05-29] MEDS ORDERED: ALBUTEROL SULFATE 2.5 MG/3 ML NEBU ONE (21:58)
[2022-05-29] MEDS ORDERED: predniSONE 20 MG TABLET PO ONE (22:00)
[2022-05-29] MEDS ORDERED: ALBUTEROL SULFATE 2.5 MG/3 ML NEBU NEB ONE (22:00)
[2022-05-29] MEDS ORDERED: DIAZEPAM 2 MG TABLET PO ONE (22:00)
[2022-05-29] MEDS ORDERED: predniSONE 20 MG TABLET ONE (22:17)
[2022-05-29] MEDS ORDERED: DIAZEPAM 2 MG TABLET ONE (22:17)
[2022-05-29] MEDS ORDERED: PRED20TA PO (22:53)
[2022-05-29] MEDS ORDERED: ALBU8.5H8 IH (22:53)
[2022-05-29] MEDS ORDERED: DIAZ5TAB4 PO (22:53)
[2022-05-29 23:04] VITALS: BP 122/80
== END 2022-05-29 23:08 | disposition home or self-care (01) ==
LOC: ER 20:30
DX: J44.9 Chronic obstructive pulmonary disease, unspecified (principal); F41.1 Generalized anxiety disorder; Z76.0 Encounter for issue of repeat prescription; Z82.49 Family history of ischemic heart disease and other diseases of the circulatory system; Z88.1 Allergy status to other antibiotic agents; Z88.2 Allergy status to sulfonamides; Z88.8 Allergy status to other drugs, medicaments and biological substances
CPT/HCPCS: 99283; 94640; J7512; A4663

== ENCOUNTER 2022-07-28 21:33 | Emergency (ER) | payer MEDICARE, BC ==
[~2022-07-28] VITALS: Ht 175.3 cm; Wt 67.6 kg
[~2022-07-28 21:33] MED LIST changes: +DIAZ5TAB4 PO
--- NOTE | 2022-07-28 21:45 | NUR ---
PATIENT WAS CALLED TO BE TRIAGED BUT WAS NOT PRESENT IN THE WAITING ROOM OR OUTSIDE OF ER.
--- NOTE | 2022-07-29 00:20 | NUR ---
Josué pereira in [facility] - 07/29/22 at [id number] CASTILLO INTO EVAL PATIENT.
[2022-07-29] MEDS ORDERED: IPRATROPIUM BROMIDE 0.5 MG/2.5 ML NEBU NEB ONE (01:30)
[2022-07-29] MEDS ORDERED: ALBUTEROL SULFATE 2.5 MG/3 ML NEBU NEB ONE (01:30)
[2022-07-29] MEDS ORDERED: ALBUTEROL SULFATE 2.5 MG/3 ML NEBU ONE (01:37)
[2022-07-29] MEDS ORDERED: IPRATROPIUM BROMIDE 0.5 MG/2.5 ML NEBU ONE (01:37)
[2022-07-29] MEDS ORDERED: predniSONE 20 MG TABLET ONE (02:12)
[2022-07-29] MEDS ORDERED: predniSONE 20 MG TABLET PO ONE (02:15)
[2022-07-29] MEDS ORDERED: DOXY-326 PO (02:52)
[2022-07-29] MEDS ORDERED: PRED20TA PO (02:52)
[2022-07-29] MEDS ORDERED: ALBU6.7H9 INH (02:52)
[2022-07-29] MEDS ORDERED: FLUT10.62 INH (02:52)
[2022-07-29 03:23] VITALS: BP 142/75
== END 2022-07-29 03:24 | disposition home or self-care (01) ==
LOC: ER 22:12
DX: J45.901 Unspecified asthma with (acute) exacerbation (principal); Z82.49 Family history of ischemic heart disease and other diseases of the circulatory system; Z88.1 Allergy status to other antibiotic agents; Z88.2 Allergy status to sulfonamides; Z88.8 Allergy status to other drugs, medicaments and biological substances
CPT/HCPCS: 99283; 94640; J7512; A4663; J3590

== ENCOUNTER 2022-08-15 00:04 | Emergency (ER) | END 2022-08-15 03:26 | disposition home or self-care (01) | DX: J45.909 Unspecified asthma, uncomplicated (principal); H60.93 Unspecified otitis externa, bilateral; F32.A Depression, unspecified; Z20.822 Contact with and (suspected) exposure to COVID-19; Z82.49 Family history of ischemic heart disease and other diseases of the circulatory system; Z88.1 Allergy status to other antibiotic agents; E78.00 Pure hypercholesterolemia, unspecified; R94.31 Abnormal electrocardiogram [ECG] [EKG] ==

== ENCOUNTER 2022-08-20 01:54 | Inpatient (IN) | payer MEDICARE, BC ==
[~2022-08-20] VITALS: Ht 175.3 cm; Wt 74.8 kg
[~2022-08-20 01:54] MED LIST changes: +DOCU250C14 PO; +FLUT10.62 INH; +NEOM10DR11 EACH EAR
[2022-08-20] MEDS ORDERED: ALBUTEROL SULFATE 2.5 MG/3 ML NEBU NEB ONE (02:15)
[2022-08-20] MEDS ORDERED: predniSONE 10 MG TABLET PO ONE (02:15)
[2022-08-20] MEDS ORDERED: IPRATROPIUM BROMIDE 0.5 MG/2.5 ML NEBU NEB ONE (02:15)
[2022-08-20] MEDS ORDERED: ALBUTEROL SULFATE 2.5 MG/3 ML NEBU ONE (02:20)
[2022-08-20] MEDS ORDERED: IPRATROPIUM BROMIDE 0.5 MG/2.5 ML NEBU ONE (02:20)
[2022-08-20] MEDS ORDERED: predniSONE 20 MG TABLET ONE (02:33)
--- NOTE | 2022-08-20 02:44 | NUR ---
1)Tried to do Covid Test refused because she is very anxious - normal take Valium 5mg at home but omited the dose today. 2) inforned - awaiting orders.
[2022-08-20] MEDS ORDERED: DIAZEPAM 2 MG TABLET ONE (02:48)
--- NOTE | 2022-08-20 02:53 | NUR ---
1) Covid test obtained. 2) Urine specimen obtained for UA & Drug Screening
[2022-08-20 02:58] LABS: CARBON DIOXIDE 29 mmol/L (21-32); CHLORIDE 106 mmol/L (98-107); CREATININE 0.9 mg/dL (0.6-1.3); GLUCOSE 105 mg/dL (74-106); POTASSIUM 3.6 mmol/L (3.5-5.1); UREA NITROGEN, BLOOD 15 mg/dL (7-18)
[2022-08-20] MEDS ORDERED: DIAZEPAM 2 MG TABLET PO ONE (03:00)
[2022-08-20 03:05] LABS: ALANINE AMINOTRANSFERASE 39 U/L (14-59); ALKALINE PHOSPHATASE 93 U/L (50-136); ASPARTATE AMINOTRANSFERASE 27 U/L (15-37); BILIRUBIN,DIRECT 0.1 mg/dL (0.0-0.2); BILIRUBIN,TOTAL 0.4 mg/dL (0.2-1.0); TOTAL PROTEIN, SERUM 6.7 g/dL (6.4-8.2)
[2022-08-20 03:10] LABS: ACETAMINOPHEN < 2.0 ug/mL (10-30)
--- NOTE | 2022-08-20 03:10 | NUR ---
Patient offered: (1) tea and water - refused ice. (2) Blankets x2 No complaints at the time of this report.
[2022-08-20 03:13] LABS: THYROID STIMULATING HORMONE 2.498 mIU/mL (0.358-3.740)
[2022-08-20 03:20] LABS: HEMATOCRIT 40.6 % (31.2-41.9); MEAN CORPUSCULAR VOLUME 93.9 fL (75.5-95.3); PLATELET COUNT (AUTO) 215 K/uL (179-408)
[2022-08-20 03:27] LABS: *BILIRUBIN,URIN NEGATIVE (NEGATIVE); *CLARITY,URINE CLEAR (CLEAR); *COLOR,URINE YELLOW (YELLOW); *KETONES,URINE NEGATIVE (NEGATIVE); *UROBILINOGEN,URINE 0.2 E.U./dl (NORMAL); LEUKOCYTE ESTERASE ,URINE TRACE (NEGATIVE); NITRITE, URINE NEGATIVE (NEGATIVE); PH,URINE 5.5 (5.0-8.0); UGLUCOSE NEGATIVE (NEGATIVE)
[2022-08-20 03:35] LABS: *AMPHETAMINE, URINE NEGATIVE (NEGATIVE); *CANNABINOID, URINE NEGATIVE (NEGATIVE); *COCCAINE, URINE NEGATIVE (NEGATIVE); *OPIATE, URINE NEGATIVE (NEGATIVE); *PHENCYCLIDINE SCREEN,URINE NEGATIVE (NEGATIVE)
[2022-08-20 03:38] LABS: ETHANOL < 3 MG/DL (0-0)
[2022-08-20 03:39] LABS: *BLOOD, URINE TRACE (NEGATIVE)
[2022-08-20 03:40] LABS: BACTERIA,URINE FEW /HPF (NONE SEEN); SQUAMOUS EPITHELIAL CELL,UR FEW /HPF (NONE SEEN)
--- NOTE | 2022-08-20 04:30 | NUR ---
1) Patient complaining of inability to sleep. 2) Requested Benadryl - normally takes 25mg nocte.
[2022-08-20] MEDS ORDERED: diphenhydrAMINE 50 MG CAPSULE ONE (04:37)
--- NOTE | 2022-08-20 04:43 | NUR ---
ordered 50mg Benadryl - adminsitered and awaiting effect.
[2022-08-20] MEDS ORDERED: diphenhydrAMINE 50 MG CAPSULE PO ONE (04:45)
--- NOTE | 2022-08-20 05:00 | NUR ---
Patient asleep at the time of this report - Benadryl effective.
--- NOTE | 2022-08-20 08:06 | NUR ---
1) Called [facility] - [phone] Crisis Clinical induction machine setter this morning re:psych evaluation. 2) [facility] will be in ER to assess patient in approx 30-45minutes. 3) Checked on patient - remains comfortably asleep, no sign of distress, SOB, or discomfort observed.
--- NOTE | 2022-08-20 08:10 | NUR ---
1) Breakfast being saved - patient asleep, slept late early hours. 2) RN reserved breakfast for patient to eat when awake.
--- NOTE | 2022-08-20 09:11 | NUR ---
[facility] - Crisis team on the unit assessing patient.
--- NOTE | 2022-08-20 10:21 | NUR ---
1) Endorsed care to RN Lena. 2) Patient changed into hospital gown. 3) Patient had breakfast before transfer to room 139B. 4) Patient clinically stable, no signs of: (a) SOB, (b) Pain, (c) distress observed.
[2022-08-20 11:00] VITALS: BP 114/55
[2022-08-20] MEDS ORDERED: MAG HYDROX/AL HYDROX/SIMETH 30 ML LIQUID UDC PO PRN (11:15)
[2022-08-20] MEDS ORDERED: MAGNESIUM HYDROXIDE 30 ML LIQUID UDC PO PRN (11:15)
[2022-08-20] MEDS ORDERED: ZOLPIDEM 5 MG TABLET PO PRN (11:15)
[2022-08-20] MEDS ORDERED: BLOOD SUGAR DIAGNOSTIC 1 EACH STRIP VI ONE (11:15)
--- NOTE | 2022-08-20 11:19 | NUR ---
1) Patient left the unit at 11:00hrs - clinically stable. 2) Property collected by hospital security to the unit where patient is being admited.
--- NOTE | 2022-08-20 14:36 | NUR ---
PT IS ALERT AND ORIENTED X4 PT CAME TO ER FEELING DEPRESSED AND WALK IN ER FOR PSYCH EVALUATION . PT HAS DIFFICULTY BREATHING FROM CHRONIC COPD AND WAS GIVEN BREATHING TX NOW ON ROOM AIR 100%. PT DENIES SI BUT C/O BEING DEPRESSED.PT TAKE 5 MG OF VALIUM FOR ANXIETY. PT WAS GIVEN 6 MG OF VALIUM IN THE ER.PT HAS HX OF COPD,ANXIETY,ASTHMA, DEPRESSION AND SURGICAL HX OF TONSILLECTOMY AND URINE DRUG SCREEN IS NEGATIVE.DX CHRONIC COPD AND DEPRESSION. PT IS ALLERGIC TO ATIVAN,CIPRO,NITROFURANTIN, SULFA,AZITHROMYCIN,PT IS ON A 72 HOUR HOLD GD DTS HOLD STARTS AT 0958 08/20/22. PT SKIN IS INTACT NO SIGNS OF BREAKAGE OR WOUNDS. PT IS COVID NEGATIVE. PT NEXT OF [facility] [place].
[2022-08-20 16:00] VITALS: BP 116/53
[2022-08-20] MEDS ORDERED: ALBUTEROL SULFATE 8 GM HFA.AER.AD IH PRN (18:45)
[2022-08-20 20:09] VITALS: BP 117/54
[2022-08-20] MEDS ORDERED: DIPH25CA83 PO (20:40)
[2022-08-20] MEDS ORDERED: MONT10TA33 PO (20:40)
[2022-08-20] MEDS ORDERED: DIAZ5TAB4 PO (20:40)
[2022-08-20] MEDS ORDERED: AMOX500C2 PO ×2 (20:40)
[2022-08-20] MEDS ORDERED: PRED20TA PO (20:40)
[2022-08-20] MEDS ORDERED: DOCU250C14 PO (20:40)
[2022-08-20] MEDS ORDERED: GABA300C PO (20:40)
[2022-08-20] MEDS ORDERED: IBUP-1953 PO (20:51)
[2022-08-20] MEDS ORDERED: CETI-90 PO (20:51)
[2022-08-20] MEDS ORDERED: FEXO-65 PO (20:51)
[2022-08-20] MEDS ORDERED: HYDR-3972 PO (20:51)
[2022-08-20] MEDS ORDERED: FLUT16SP16 BNOSTRILS (20:51)
[2022-08-20] MEDS ORDERED: NEOM10DR11 EACH EAR (20:51)
[2022-08-20] MEDS ORDERED: ALBU8.5H8 INH (20:54)
[2022-08-20] MEDS ORDERED: IBUPROFEN 400 MG TABLET PO PRN (21:45)
[2022-08-20] MEDS ORDERED: HYDROCODONE/APAP 5-325MG TABLET PO PRN (21:45)
[2022-08-20] MEDS ORDERED: ALBUTEROL SULFATE 2.5 MG/3 ML NEBU NEB PRN (22:15)
--- NOTE | 2022-08-20 22:30 | NUR ---
RECEIVED PATIENT IN HER ROOM IN BED. SHE WAS NOTED SLEEPING BUT EASILY AROUSABLE. SHE IS NOTED A/O X 3 ABLE TO VERBALIZED HER FEELINGS. SHE IS NOTED ANXIOUS AND FIXED ON HER MEDICATIONS (EAR DROPS, GABAPENTIN, AND INHALER) ALL HER MEDICATIONS WERE RECONCILED. SHE DENIED SI AND SHE WAS ABLE TO VERBALLY CFS. AMBIEN 5MG PO PRN WAS GIVEN FOR INSOMNIA. SHE IS REASSURED FOR HER SAFETY. SAFETY AND FALL PRECAUTIONS ARE IN PLACE. HER V/S ARE STABLE. SHE WAS GIVEN PO FLUIDS AND SNACKS. ALL HER NEEDS ARE MET. WILL CONTINUE TO MONITOR.
[2022-08-20] MEDS: ZOLPIDEM 5 MG TABLET PO PRN (22:40)
[2022-08-20] MEDS ORDERED: GABAPENTIN 300 MG CAPSULE PO ONE (22:45)
[2022-08-20] MEDS: ALBUTEROL SULFATE 2.5 MG/3 ML NEBU NEB PRN (23:58)
[2022-08-21 07:26] LABS: MEAN CORPUSCULAR HEMOGLOBIN 31.2 uug (24.7-32.8); MEAN CORPUSCULAR VOLUME 93.3 fL (75.5-95.3); PLATELET COUNT (AUTO) 189 K/uL (179-408)
[2022-08-21 07:30] VITALS: BP 119/57
[2022-08-21 07:34] LABS: CREATININE 0.9 mg/dL (0.6-1.3); POTASSIUM 3.8 mmol/L (3.5-5.1)
[2022-08-21] MEDS: MONTELUKAST SODIUM 10 MG TABLET PO SCH ×2 (09:00→09:29)
[2022-08-21] MEDS: CETIRIZINE HCL 10 MG TABLET PO SCH (09:30)
[2022-08-21] MEDS: FLUTICASONE PROP NASAL SPRAY 16 GM BOTTLE NS SCH (09:30)
[2022-08-21] MEDS: DIAZEPAM 5 MG TABLET PO SCH ×2 (10:21→16:41)
[2022-08-21] MEDS: buPROPion XL 150 MG TAB.SR.24H PO SCH (10:30)
[2022-08-21] MEDS: ALBUTEROL SULFATE 2.5 MG/3 ML NEBU NEB PRN (11:23)
--- NOTE | 2022-08-21 11:55 | NUR ---
RENZO Initial Discharge Note: Pt currently resides [place] at [address] [place] [address] ([phone]). It is uncertain if pt will discharge home upon discharge. Pt is also agreeable to a temporary snf facility if she does not feel ready to return home. RENZO will continue to work with pt, family and MD to ensure a safe and proper discharge plan.
--- NOTE | 2022-08-21 11:58 | NUR ---
Firearms Report: Dry Starch Operator completed and submitted a [employer] firearms report for 5150 a danger to herself and grave disability certifications. A copy of report has been placed in patient chart.
[2022-08-21] MEDS: ACETAMINOPHEN 325 MG TABLET PO PRN (14:29)
[2022-08-21 16:00] VITALS: BP 117/54
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
[2022-08-21 20:10] VITALS: BP 100/51
--- NOTE | 2022-08-21 20:30 | NUR ---
RECEIVED PATIENT IN THE HALLWAY. SHE IS WAITING TO TAKE A SHOWER. SHE IS A/O X 2 SHE IS CALM AND PLEASANT UPON APPROACHED. SHE DENIED SI/HI//AH. SHE IS NOTED WITH POOR INSIGHT INTO HIS ADMISSION TO [facility]HU. PATIENT IS REASSURED FOR HER SAFETY. SAFETY AND FALL PRECAUTIONS ARE IN PLACE. SHE WAS GIVEN PO FLUIDS AND SNACKS. WILL CONTINUE TO MONITOR.
[2022-08-21] MEDS: GABAPENTIN 300 MG CAPSULE PO SCH (20:40)
[2022-08-21] MEDS: DOCUSATE SODIUM 250 MG CAPSULE PO SCH (20:40)
[2022-08-21] MEDS: [UNRECOGNIZED DRUG - OTHER] EACH EAR SCH (21:00)
[2022-08-21] MEDS: ZOLPIDEM 5 MG TABLET PO PRN (22:22)
[2022-08-22] MEDS: HYDROXYZINE PAMOATE 25 MG CAPSULE PO PRN ×2 (03:44→21:26)
[2022-08-22 07:30] VITALS: BP 130/50
[2022-08-22] MEDS: buPROPion XL 150 MG TAB.SR.24H PO SCH (08:37)
[2022-08-22] MEDS: DIAZEPAM 5 MG TABLET PO SCH ×2 (08:37→16:59)
[2022-08-22] MEDS: [UNRECOGNIZED DRUG - OTHER] EACH EAR SCH ×3 (08:38→17:00)
--- NOTE | 2022-08-22 14:42 | NUR ---
SW Family Contact: SW spoke with pt's brother, Eduardo ([phone]) regarding pt's discharge plan. Eduardo stated that pt's is 89 years old. Eduardo expressed he does not know the nature of their relationship due to her discharge plan. Eduardo stated he is in contact with her and available to answer questions. Eduardo stated pt does not have a DPOA or conservator. Eduardo did not have patient's daughter's contact information. Eduardo is aware and agreeable with the pt's current treatment plan and was informed this SW will communicate further updates as available.
[2022-08-22 16:53] VITALS: BP 122/54
[2022-08-22] MEDS ORDERED: ALBUTEROL SULFATE 8 GM HFA.AER.AD IH PRN (19:00)
[2022-08-22 20:42] VITALS: BP 149/61
[2022-08-22] MEDS: ALBUTEROL SULFATE 2.5 MG/3 ML NEBU NEB PRN (20:49)
[2022-08-22] MEDS: GABAPENTIN 300 MG CAPSULE PO SCH (21:26)
[2022-08-22] MEDS: DOCUSATE SODIUM 250 MG CAPSULE PO SCH (21:26)
--- NOTE | 2022-08-23 03:26 | NUR ---
Although pt is AOx3, pt has delayed response when communicating with him. Seems suspicious, withdrawn, and anxious when interacting with him. Overall, he is compliant with POC. Will continue to monitor. Addendum: 08/23/22 at 0334 by LASHONDA WILKERSON LVN CORRECTION: The above notes are instead for pt 137-B Mark Castorena. Myrtle Raymond was anxious, had trouble sleeping, and requested medications for both conditions. PRN medications were effective. Insomnia and anxiousness were corrected.
[2022-08-23 08:03] VITALS: BP 106/44
[2022-08-23] MEDS: [UNRECOGNIZED DRUG - OTHER] EACH EAR SCH ×3 (08:42→16:46)
[2022-08-23] MEDS: FLUTICASONE PROP NASAL SPRAY 16 GM BOTTLE NS SCH (08:42)
[2022-08-23] MEDS: buPROPion XL 150 MG TAB.SR.24H PO SCH (08:43)
[2022-08-23] MEDS: DIAZEPAM 5 MG TABLET PO SCH ×2 (08:43→16:46)
[2022-08-23] MEDS: CETIRIZINE HCL 10 MG TABLET PO SCH ×2 (08:43→08:50)
[2022-08-23] MEDS: MONTELUKAST SODIUM 10 MG TABLET PO SCH ×2 (08:43→08:49)
--- NOTE | 2022-08-23 13:27 | NUR ---
GPS: Nursing Notes: Destructive Behavior To Self: Patient is awake and responding to her name, gets easily irritable when redirected, poor impulse control, depressed mood and angry affect, refusing to participate in therapeutic groups, but did 1:1 with recreational therapist, unable to formulate a viable plan for self care, continue to [id number] for safety, continue with treatment plan.
[2022-08-23] MEDS: HYDROXYZINE PAMOATE 25 MG CAPSULE PO PRN (13:47)
[2022-08-23 16:13] VITALS: BP 137/64
[2022-08-23] MEDS: ALBUTEROL SULFATE 2.5 MG/3 ML NEBU NEB PRN (18:46)
[2022-08-23 19:52] VITALS: BP 122/63
[2022-08-23] MEDS: DOCUSATE SODIUM 250 MG CAPSULE PO SCH (20:16)
[2022-08-23] MEDS: GABAPENTIN 300 MG CAPSULE PO SCH (20:16)
[2022-08-23] MEDS: ACETAMINOPHEN 325 MG TABLET PO PRN (20:18)
[2022-08-24] MEDS: diphenhydrAMINE 25 MG CAP PO PRN ×2 (03:43→21:23)
--- NOTE | 2022-08-24 04:21 | NUR ---
GPS NOTES: Received patient in her room, A&0x2. She is pleasant and calm, she is verbalizing her needs. Requesting to be back on Amoxicillin for her lung infections. Will inform Md in the Am. She is med compliant. Snacks and fluids provided. She sleeps intermittently during shift. Benadryl given as prn. Safety measures left in placed.
[2022-08-24 08:04] VITALS: BP 122/63
[2022-08-24] MEDS: DIAZEPAM 5 MG TABLET PO SCH ×2 (08:33→16:29)
[2022-08-24] MEDS: MONTELUKAST SODIUM 10 MG TABLET PO SCH ×3 (08:33→21:23)
[2022-08-24] MEDS: [UNRECOGNIZED DRUG - OTHER] EACH EAR SCH ×3 (08:33→16:29)
[2022-08-24] MEDS: FLUTICASONE PROP NASAL SPRAY 16 GM BOTTLE NS SCH (08:34)
[2022-08-24] MEDS: CETIRIZINE HCL 10 MG TABLET PO SCH (08:34)
[2022-08-24] MEDS: buPROPion XL 150 MG TAB.SR.24H PO SCH (11:09)
[2022-08-24] MEDS: ALBUTEROL SULFATE 2.5 MG/3 ML NEBU NEB PRN ×2 (14:57→21:21)
--- NOTE | 2022-08-24 15:37 | NUR ---
GPS: Nursing Notes: Destructive Behavior To Self: Patient is awake and responding to her name, poor insight, depressed mood and anxious affect, needs prompting to participate in therapeutic groups, argumentative at times, cooperative with nursing care, unable to formulate a viable plan for self care, gets easily anxious when redirected, continue to monitor for safety, continue with treatment plan.
[2022-08-24 19:56] VITALS: BP 118/60
[2022-08-24] MEDS: DOCUSATE SODIUM 250 MG CAPSULE PO SCH (21:23)
[2022-08-24] MEDS: GABAPENTIN 300 MG CAPSULE PO SCH (21:23)
[2022-08-25] MEDS: ACETAMINOPHEN 325 MG TABLET PO PRN (01:54)
[2022-08-25] MEDS: diphenhydrAMINE 25 MG CAP PO PRN ×2 (03:21→20:40)
[2022-08-25 08:14] VITALS: BP 127/56
[2022-08-25] MEDS: FLUTICASONE PROP NASAL SPRAY 16 GM BOTTLE NS SCH (08:26)
[2022-08-25] MEDS: DIAZEPAM 5 MG TABLET PO SCH ×2 (08:26→17:20)
[2022-08-25] MEDS: [UNRECOGNIZED DRUG - OTHER] EACH EAR SCH ×3 (08:26→17:21)
[2022-08-25] MEDS: buPROPion XL 150 MG TAB.SR.24H PO SCH (08:26)
--- NOTE | 2022-08-25 10:09 | NUR ---
RENZO Family Contact: SW contacted pt's brother, Eduardo ([phone]) and left a voicemail for a call back regarding pt's discharge plan.
--- NOTE | 2022-08-25 12:01 | NUR ---
RENZO Family Contact: Pt's brother, Eduardo ([phone]) returned this SW's call. Eduardo is aware and agreeable with pt's return home on 08/26/21 at 11am via taxi. Eduardo confirmed he cannot provide transportation. Eduardo is aware he has been the main family contact for the pt. RENZO was unable to gather contact information for the pt's daughter. Per pt, her is in nursing home.
--- NOTE | 2022-08-25 14:09 | NUR ---
GPS: Nursing Notes: Destructive Behavior To Self: Patient is awake and responding to her name, cooperative with nursing care, minimal participation in therapeutic groups, believes that she is getting better, brighter affect, less depression, compliant with her medications, A/Ox3, unable to formulate a viable plan for self care, continue to monitor for safety, continue with treatment plan.
[2022-08-25 15:57] VITALS: BP 127/68
[2022-08-25 19:40] VITALS: BP 128/51
[2022-08-25] MEDS: GABAPENTIN 300 MG CAPSULE PO SCH (20:31)
[2022-08-25] MEDS: MONTELUKAST SODIUM 10 MG TABLET PO SCH (20:31)
[2022-08-25] MEDS: DOCUSATE SODIUM 250 MG CAPSULE PO SCH (21:00)
[2022-08-26 08:10] VITALS: BP 120/57
[2022-08-26] MEDS: buPROPion XL 150 MG TAB.SR.24H PO SCH (08:50)
[2022-08-26] MEDS: DIAZEPAM 5 MG TABLET PO SCH (08:50)
[2022-08-26] MEDS: FLUTICASONE PROP NASAL SPRAY 16 GM BOTTLE NS SCH (08:51)
[2022-08-26] MEDS: [UNRECOGNIZED DRUG - OTHER] EACH EAR SCH (08:51)
--- NOTE | 2022-08-26 09:14 | NUR ---
RENZO Discharge Note: Pt will be discharged home located at [address] [place] [address] via [employer] transportation at 11AM. RENZO spoke with ps brother, Eduardo ([phone]) who is aware and agreeable with the discharge plan. Pt does not have a DPOA or conservator. Pt is aware and agreeable with discharge plan. Pt is alert and oriented x4. Pt denies any suicidal or homicidal ideation. Pt will follow-up with an outpatient psychiatrist and psychologist assigned at [facility] located at [address] [place] [id number] ([phone]) via in person therapy on September 03 at 9:30AM confirmed by Ahsan in the office. RENZO also provided pt with additional resources such as, [facility] located at [address] [place] [address] ([phone]); [facility] located at [address], [address] [place] [address] ([phone]). Pt presents with calm mood and congruent affect. PHARMACY: [facility] [address] [place] [address] ([phone]).
--- NOTE | 2022-08-26 11:30 | NUR ---
GPS: Nursing Notes: Discharge Notes: Patient is awake and responding to her name, cooperative with nursing care, compliant with her medications, following staff directions, denies SI/HI, denies AH/VH, denies pain or discomfort, denies SOB. [place] [id number] [facility], [place] [address], instructions and prescription given to patient, took all her belongings and valuables with her. Transported home via [email or web address]. Patient's brother - Eduardo informed of discharge by long term care social worker. Patient will follow-up with an outpatient psychiatrist and psychologist assigned at [facility] located at [address] [place] [id number] ([phone]) via in person therapy on September 03 at 9:30AM confirmed by Ahsan in the office. also provided pt with additional resources such as, [facility] located at [address] [place] [phone] ([phone]); [facility] located at [address] [place] [address], [address] [place] [address] ([phone]).
== END 2022-08-26 11:30 | disposition home or self-care (01) | DRG 885 ==
LOC: ER 01:57 → GPS 10:28
PROVIDERS: ADMIT Psychiatry & Neurology Psychiatry; ATTEND Internal Medicine
DX: F33.2 Major depressive disorder, recurrent severe without psychotic features (principal); F41.1 Generalized anxiety disorder; Z79.899 Other long term (current) drug therapy; Z87.01 Personal history of pneumonia (recurrent); Z20.822 Contact with and (suspected) exposure to COVID-19; E78.5 Hyperlipidemia, unspecified; J44.9 Chronic obstructive pulmonary disease, unspecified
CPT/HCPCS: 36415; 84443; 85025; 93005; 94640; A4663; G0480; J3535; J3590; J7512; Q0163

== ENCOUNTER 2022-09-27 18:47 | Emergency (ER) | payer MEDICARE, BC ==
[~2022-09-27] VITALS: Ht 172.7 cm; Wt 65.8 kg
[~2022-09-27 18:47] MED LIST changes: -ALBU18HF2 INH; -ALBU6.7H9 INH; -ALBU8.5H8 IH; -ALBU8HFA4 IH; -CARB-277 EACH EAR; -CEPH500C2 PO; -CLOT15CR5 TP; -DIAZ5TAB PO; -DIAZ5TAB4 PO; -DIPH25CA83 PO; -DOXY-326 PO; -DOXY100C5 PO; +FEXO-65 PO; -FEXO180T94 PO; -FLUT10.62 INH; +HYDR-3972 PO; -HYDR-4209 PO; +IBUP-1953 PO; -IBUP-1955 PO; -MONT10TA22 PO; +MONT10TA33 PO; -PHEN-895 PO; -PRED50TA PO; -PSEU120T83 PO
--- NOTE | 2022-09-27 18:59 | NUR ---
Dr. Luna evaluating patient at bedside. MSE in progress.
[2022-09-27] MEDS ORDERED: IPRATROPIUM BROMIDE 0.5 MG/2.5 ML NEBU NEB ONE (19:00)
[2022-09-27] MEDS ORDERED: predniSONE 10 MG TABLET PO ONE (19:00)
[2022-09-27] MEDS ORDERED: ALBUTEROL SULFATE 2.5 MG/3 ML NEBU NEB ONE (19:00)
[2022-09-27] MEDS ORDERED: PRED50TA PO (19:03)
[2022-09-27] MEDS ORDERED: ALBU6.7H9 INH (19:03)
[2022-09-27] MEDS ORDERED: predniSONE 20 MG TABLET ONE (19:06)
[2022-09-27] MEDS ORDERED: ALBUTEROL SULFATE 2.5 MG/3 ML NEBU ONE (19:10)
[2022-09-27] MEDS ORDERED: IPRATROPIUM BROMIDE 0.5 MG/2.5 ML NEBU ONE (19:10)
--- NOTE | 2022-09-27 19:13 | NUR ---
RT at bedside for respiratory treatment.
[2022-09-27 20:04] VITALS: BP 120/75
== END 2022-09-27 20:04 | disposition home or self-care (01) ==
LOC: ER 18:47
DX: J44.1 Chronic obstructive pulmonary disease with (acute) exacerbation (principal); Z87.01 Personal history of pneumonia (recurrent); E78.00 Pure hypercholesterolemia, unspecified; Z88.1 Allergy status to other antibiotic agents; Z88.2 Allergy status to sulfonamides; Z88.8 Allergy status to other drugs, medicaments and biological substances; Z82.49 Family history of ischemic heart disease and other diseases of the circulatory system; Z79.899 Other long term (current) drug therapy
CPT/HCPCS: 99284; 94640; J7512; A4663; J3590

== ENCOUNTER 2022-10-30 16:30 | Emergency (ER) | payer MEDICARE, BC ==
[~2022-10-30] VITALS: Ht 175.3 cm; Wt 67.6 kg
[~2022-10-30 16:30] MED LIST changes: +ALBU6.7H9 INH; +PRED50TA PO
--- NOTE | 2022-10-30 16:38 | NUR ---
Pt was seen by Dr. Fajardo. Safety measures in place. Will continue to monitor.
[2022-10-30] MEDS ORDERED: predniSONE 10 MG TABLET PO ONE (16:45)
[2022-10-30] MEDS ORDERED: ALBUTEROL SULFATE 2.5 MG/3 ML NEBU NEB ONE ×2 (16:45→17:15)
[2022-10-30] MEDS ORDERED: IPRATROPIUM BROMIDE 0.5 MG/2.5 ML NEBU NEB ONE ×2 (16:45→17:15)
[2022-10-30] MEDS ORDERED: predniSONE 10 MG TABLET ONE (16:47)
[2022-10-30] MEDS ORDERED: ALBUTEROL SULFATE 2.5 MG/3 ML NEBU ONE ×2 (16:51→17:18)
[2022-10-30] MEDS ORDERED: IPRATROPIUM BROMIDE 0.5 MG/2.5 ML NEBU ONE ×2 (16:51→17:18)
[2022-10-30] MEDS ORDERED: ALBU8.5H8 INH (17:43)
[2022-10-30] MEDS ORDERED: PRED50TA PO (17:43)
[2022-10-30] MEDS ORDERED: FLUT1DIS27 INH (17:43)
--- NOTE | 2022-10-30 17:52 | NUR ---
Patient discharged to home in stable condition with brisk steady gait. Written and verbal after care instructions given. Patient verbalizes understanding and compliance of instructions. Stressed follow up with primary doctor or return to ER for worsening s/s.
[2022-10-30 17:54] VITALS: BP 129/89
== END 2022-10-30 17:53 | disposition home or self-care (01) ==
LOC: ER 16:30
DX: J45.901 Unspecified asthma with (acute) exacerbation (principal); Z88.1 Allergy status to other antibiotic agents; Z88.2 Allergy status to sulfonamides; Z88.8 Allergy status to other drugs, medicaments and biological substances; Z87.01 Personal history of pneumonia (recurrent)
CPT/HCPCS: 99284; 94640 ×2; J7512; J3590

== ENCOUNTER 2022-11-11 18:43 | Emergency (ER) | payer MEDICARE, BC ==
[~2022-11-11] VITALS: Ht 175.3 cm; Wt 67.6 kg
[~2022-11-11 18:43] MED LIST changes: +FLUT1DIS27 INH
[2022-11-11] MEDS ORDERED: predniSONE 20 MG TABLET ONE (19:05)
[2022-11-11] MEDS ORDERED: DIAZEPAM 2 MG TABLET ONE (19:13)
[2022-11-11] MEDS ORDERED: IPRATROPIUM BROMIDE 0.5 MG/2.5 ML NEBU ONE (19:15)
[2022-11-11] MEDS ORDERED: predniSONE 10 MG TABLET PO ONE (19:15)
[2022-11-11] MEDS ORDERED: DIAZEPAM 2 MG TABLET PO ONE (19:15)
[2022-11-11] MEDS ORDERED: ALBUTEROL SULFATE 2.5 MG/3 ML NEBU ONE (19:15)
[2022-11-11] MEDS ORDERED: ALBUTEROL SULFATE 2.5 MG/3 ML NEBU NEB ONE (19:15)
[2022-11-11] MEDS ORDERED: IPRATROPIUM BROMIDE 0.5 MG/2.5 ML NEBU NEB ONE (19:15)
--- NOTE | 2022-11-11 19:18 | NUR ---
Patient on RA saturating high 90s, NAD noted.
[2022-11-11] MEDS ORDERED: ALBU8.5H8 IH (20:46)
[2022-11-11] MEDS ORDERED: FLUT1BLS14 INH (20:46)
[2022-11-11] MEDS ORDERED: PRED20TA PO (20:46)
[2022-11-11] MEDS ORDERED: DIAZ5TAB4 PO (20:46)
[2022-11-11] MEDS ORDERED: DOXY100C5 PO (20:58)
--- NOTE | 2022-11-11 21:10 | NUR ---
Patient discharged to home in stable condition. Written and verbal after care instructions given. Patient verbalizes understanding of instructions. Stressed follow up or return to ER for worsening s/s. Patient is a/ox4, NAD noted. patient ambulated with steady gait
[2022-11-11] MEDS ORDERED: IV NORMAL SALINE 1000 ML BAG IV ONE (21:30)
[2022-11-11 21:31] VITALS: BP 125/61
== END 2022-11-11 21:31 | disposition home or self-care (01) ==
LOC: ER 18:43
DX: J20.9 Acute bronchitis, unspecified (principal); J98.01 Acute bronchospasm; F41.9 Anxiety disorder, unspecified; J44.9 Chronic obstructive pulmonary disease, unspecified; Z90.89 Acquired absence of other organs; Z88.1 Allergy status to other antibiotic agents; Z88.2 Allergy status to sulfonamides; Z88.8 Allergy status to other drugs, medicaments and biological substances; Z79.2 Long term (current) use of antibiotics; Z79.1 Long term (current) use of non-steroidal anti-inflammatories (NSAID); Z79.899 Other long term (current) drug therapy
CPT/HCPCS: 99283; 94640; J7512; A4663; J3590

== ENCOUNTER 2023-03-03 23:28 | Emergency (ER) | payer MEDICARE, BC ==
[~2023-03-03] VITALS: Ht 175.3 cm; Wt 66.7 kg
[~2023-03-03 23:28] MED LIST changes: +ALBU8.5H8 IH; +DIAZ5TAB4 PO; +DOXY100C5 PO; +FLUT1BLS14 INH
--- NOTE | 2023-03-04 00:25 | NUR ---
Pt is noted alert, responsive as she came in C/O Asthma Flare up with wheezing and Rhonchi , also SOB upon Exercetion . Pt care continue as awaits MD orders.
[2023-03-04 00:30] VITALS: O2SAT 97
[2023-03-04] MEDS ORDERED: ALBUTEROL SULFATE 2.5 MG/3 ML NEBU ONE (00:30)
[2023-03-04] MEDS ORDERED: predniSONE 10 MG TABLET PO ONE (00:30)
[2023-03-04] MEDS ORDERED: IPRATROPIUM BROMIDE 0.5 MG/2.5 ML NEBU NEB ONE (00:30)
[2023-03-04] MEDS ORDERED: ALBUTEROL SULFATE 2.5 MG/3 ML NEBU NEB ONE (00:30)
[2023-03-04] MEDS ORDERED: IPRATROPIUM BROMIDE 0.5 MG/2.5 ML NEBU ONE (00:30)
[2023-03-04] MEDS ORDERED: predniSONE 50 MG TABLET ONE (00:44)
[2023-03-04] MEDS ORDERED: predniSONE 10 MG TABLET ONE (00:45)
--- NOTE | 2023-03-04 00:49 | NUR ---
Pt care continue as Prednisone 60mg PO given as ordered as RT is at bedside given Breathen treatment.
[2023-03-04 00:50] VITALS: O2SAT 97
[2023-03-04] MEDS ORDERED: PRED50TA PO (01:15)
[2023-03-04 03:10] VITALS: BP 138/82; TEMP 97.8; O2SAT 97
--- NOTE | 2023-03-04 03:11 | NUR ---
Pt is noted off the unit , stable as she is been discharged to home with all discharged instructions given.
== END 2023-03-04 03:12 | disposition home or self-care (01) ==
LOC: ER 23:37
DX: J45.901 Unspecified asthma with (acute) exacerbation (principal); J44.9 Chronic obstructive pulmonary disease, unspecified; Z90.89 Acquired absence of other organs; Z88.1 Allergy status to other antibiotic agents; Z88.2 Allergy status to sulfonamides; Z88.8 Allergy status to other drugs, medicaments and biological substances; Z79.2 Long term (current) use of antibiotics; Z79.899 Other long term (current) drug therapy; Z79.1 Long term (current) use of non-steroidal anti-inflammatories (NSAID)
CPT/HCPCS: 99283; 94640; J7512 ×2; A4663; J3590

== ENCOUNTER 2023-03-16 12:25 | Emergency (ER) | payer MEDICARE, BC ==
[~2023-03-16] VITALS: Ht 175.3 cm; Wt 66.7 kg
--- NOTE | 2023-03-16 12:44 | NUR ---
Pt seen by MD for bedside eval. Safety measures in place. Will continue to monitor.
[2023-03-16] MEDS ORDERED: ALBUTEROL SULFATE 2.5 MG/3 ML NEBU NEB ONE (13:00)
[2023-03-16] MEDS ORDERED: IPRATROPIUM BROMIDE 0.5 MG/2.5 ML NEBU NEB ONE (13:00)
[2023-03-16] MEDS ORDERED: predniSONE 10 MG TABLET PO ONE (13:00)
[2023-03-16] MEDS ORDERED: predniSONE 10 MG TABLET ONE (13:01)
[2023-03-16] MEDS ORDERED: IPRATROPIUM BROMIDE 0.5 MG/2.5 ML NEBU ONE (13:09)
[2023-03-16] MEDS ORDERED: ALBUTEROL SULFATE 2.5 MG/3 ML NEBU ONE (13:09)
[2023-03-16 13:19] VITALS: O2SAT 94
--- NOTE | 2023-03-16 14:18 | NUR ---
Pt is now at 98-100% SpO2. Safety measures in place. Will continue to monitor.
[2023-03-16 14:20] VITALS: O2SAT 99
[2023-03-16] MEDS ORDERED: DOXY100C5 PO (15:27)
[2023-03-16] MEDS ORDERED: ALBU8.5H8 INH (15:27)
[2023-03-16] MEDS ORDERED: PRED50TA PO (15:27)
[2023-03-16 15:36] VITALS: BP 134/88; TEMP 97.8; O2SAT 94
== END 2023-03-16 15:37 | disposition home or self-care (01) ==
LOC: ER 12:25
DX: J44.1 Chronic obstructive pulmonary disease with (acute) exacerbation (principal); J18.1 Lobar pneumonia, unspecified organism; Z90.89 Acquired absence of other organs; Z88.1 Allergy status to other antibiotic agents; Z88.2 Allergy status to sulfonamides; Z88.8 Allergy status to other drugs, medicaments and biological substances; Z79.1 Long term (current) use of non-steroidal anti-inflammatories (NSAID); Z79.2 Long term (current) use of antibiotics; Z79.899 Other long term (current) drug therapy
CPT/HCPCS: 99285; 71045; 93005; 94644; J7512; A4663; J3590

== ENCOUNTER 2023-04-10 00:08 | Emergency (ER) | payer MEDICARE, BC ==
[2023-04-09 00:38] VITALS: O2SAT 95
[~2023-04-10] VITALS: Ht 170.2 cm; Wt 66.7 kg
[2023-04-10] MEDS ORDERED: predniSONE 20 MG TABLET ONE (00:26)
[2023-04-10] MEDS ORDERED: predniSONE 20 MG TABLET PO ONE (00:30)
[2023-04-10] MEDS ORDERED: IPRATROPIUM BROMIDE 0.5 MG/2.5 ML NEBU ONE (00:30)
[2023-04-10] MEDS ORDERED: IPRATROPIUM BROMIDE 0.5 MG/2.5 ML NEBU NEB ONE (00:30)
[2023-04-10] MEDS ORDERED: ALBUTEROL SULFATE 2.5 MG/3 ML NEBU NEB ONE (00:30)
[2023-04-10] MEDS ORDERED: ALBUTEROL SULFATE 2.5 MG/3 ML NEBU ONE (00:30)
[2023-04-10] MEDS ORDERED: PRED20TA PO (00:39)
[2023-04-10 00:48] VITALS: O2SAT 95
[2023-04-10] MEDS ORDERED: ALBUTEROL SULFATE 2.5 MG/ 0.5 ML NEBU NEB ONE (01:00)
[2023-04-10] MEDS ORDERED: ALBUTEROL SULFATE 2.5 MG/ 0.5 ML NEBU ONE (01:07)
[2023-04-10 01:10] VITALS: O2SAT 94
[2023-04-10 01:20] VITALS: O2SAT 97
[2023-04-10 01:50] VITALS: BP 131/79; TEMP 97.8; O2SAT 97
== END 2023-04-10 01:30 | disposition home or self-care (01) ==
LOC: ER 00:12
DX: J45.901 Unspecified asthma with (acute) exacerbation (principal); Z90.49 Acquired absence of other specified parts of digestive tract; Z88.2 Allergy status to sulfonamides; Z88.1 Allergy status to other antibiotic agents; Z88.8 Allergy status to other drugs, medicaments and biological substances; Z79.2 Long term (current) use of antibiotics; Z79.899 Other long term (current) drug therapy; Z79.1 Long term (current) use of non-steroidal anti-inflammatories (NSAID)
CPT/HCPCS: 99285; 94640; 94664; J7512; A4663; J3590

== ENCOUNTER 2023-05-17 22:37 | Emergency (ER) | payer MEDICARE, BC ==
[~2023-05-17] VITALS: Ht 170.2 cm; Wt 66.7 kg
[2023-05-17] MEDS ORDERED: ALBUTEROL SULFATE 2.5 MG/3 ML NEBU NEB ONE (23:00)
[2023-05-17] MEDS ORDERED: IPRATROPIUM BROMIDE 0.5 MG/2.5 ML NEBU NEB ONE (23:00)
[2023-05-17] MEDS ORDERED: predniSONE 50 MG TABLET PO ONE (23:00)
[2023-05-17] MEDS ORDERED: IPRATROPIUM BROMIDE 0.5 MG/2.5 ML NEBU ONE (23:05)
[2023-05-17] MEDS ORDERED: ALBUTEROL SULFATE 2.5 MG/3 ML NEBU ONE (23:05)
[2023-05-17 23:10] VITALS: O2SAT 100
[2023-05-17] MEDS ORDERED: predniSONE 50 MG TABLET ONE (23:12)
[2023-05-17 23:25] VITALS: O2SAT 100
[2023-05-18] MEDS ORDERED: FLUT1BLS15 INH (00:26)
[2023-05-18] MEDS ORDERED: PRED20TA PO (00:26)
[2023-05-18] MEDS ORDERED: ALBU8.5H8 INH (00:26)
[2023-05-18] MEDS ORDERED: DOXY-326 PO (00:26)
[2023-05-18 00:48] VITALS: BP 138/79; TEMP 98.2; O2SAT 100
== END 2023-05-18 00:35 | disposition home or self-care (01) ==
LOC: ER 22:39
DX: J45.901 Unspecified asthma with (acute) exacerbation (principal); J20.9 Acute bronchitis, unspecified; E78.5 Hyperlipidemia, unspecified; R07.89 Other chest pain; Z90.89 Acquired absence of other organs; Z88.2 Allergy status to sulfonamides; Z88.1 Allergy status to other antibiotic agents; Z88.8 Allergy status to other drugs, medicaments and biological substances; Z79.899 Other long term (current) drug therapy; Z79.2 Long term (current) use of antibiotics; Z79.1 Long term (current) use of non-steroidal anti-inflammatories (NSAID)
CPT/HCPCS: 99283; 71046; 94640; J7512; A4663; J3590

== ENCOUNTER 2023-09-09 17:58 | Emergency (ER) | payer MEDICARE, BC ==
[~2023-09-09] VITALS: Ht 175.3 cm; Wt 65.8 kg
[~2023-09-09 17:58] MED LIST changes: +DOXY-326 PO; +FLUT1BLS15 INH
[2023-09-09] MEDS ORDERED: ALBUTEROL SULFATE 2.5 MG/3 ML NEBU NEB ONE ×2 (22:45→23:45)
[2023-09-09] MEDS ORDERED: predniSONE 10 MG TABLET PO ONE (22:45)
[2023-09-09] MEDS ORDERED: IPRATROPIUM BROMIDE 0.5 MG/2.5 ML NEBU NEB ONE (22:45)
[2023-09-09] MEDS ORDERED: IPRATROPIUM BROMIDE 0.5 MG/2.5 ML NEBU ONE (22:50)
[2023-09-09] MEDS ORDERED: ALBUTEROL SULFATE 2.5 MG/3 ML NEBU ONE ×2 (22:50→23:48)
[2023-09-09] MEDS ORDERED: predniSONE 20 MG TABLET ONE (22:53)
[2023-09-09 22:56] VITALS: O2SAT 99
[2023-09-09 23:10] VITALS: O2SAT 99
[2023-09-09] MEDS ORDERED: FLUT1BLS15 INH (23:42)
[2023-09-09] MEDS ORDERED: PRED20TA PO (23:42)
[2023-09-09] MEDS ORDERED: DOXY100C5 PO (23:42)
[2023-09-09 23:50] VITALS: O2SAT 98
[2023-09-10 00:05] VITALS: O2SAT 99
[2023-09-10 01:02] VITALS: BP 133/86; TEMP 98; O2SAT 98
== END 2023-09-10 01:03 | disposition home or self-care (01) ==
LOC: ER 18:02
DX: J98.01 Acute bronchospasm (principal); J44.1 Chronic obstructive pulmonary disease with (acute) exacerbation; R05.9 Cough, unspecified; R06.00 Dyspnea, unspecified; J18.9 Pneumonia, unspecified organism; E78.00 Pure hypercholesterolemia, unspecified; Z79.899 Other long term (current) drug therapy; Z98.890 Other specified postprocedural states; Z88.2 Allergy status to sulfonamides; Z88.1 Allergy status to other antibiotic agents
CPT/HCPCS: 99285; 71045; 94640; J7512; A4606; A4663; J3590

== ENCOUNTER 2023-10-03 17:06 | Emergency (ER) | payer MEDICARE, BC ==
[~2023-10-03] VITALS: Ht 175.3 cm; Wt 66.7 kg
[2023-10-03] MEDS ORDERED: predniSONE 20 MG TABLET ONE (19:14)
[2023-10-03] MEDS: ALBUTEROL SULFATE 2.5 MG/3 ML NEBU NEB ONE (19:16)
[2023-10-03] MEDS: IPRATROPIUM BROMIDE 0.5 MG/2.5 ML NEBU NEB ONE (19:16)
[2023-10-03] MEDS: predniSONE 20 MG TABLET PO ONE (19:16)
[2023-10-03] MEDS ORDERED: ALBUTEROL SULFATE 2.5 MG/3 ML NEBU ONE (19:18)
[2023-10-03] MEDS ORDERED: IPRATROPIUM BROMIDE 0.5 MG/2.5 ML NEBU ONE (19:18)
[2023-10-03 19:20] VITALS: O2SAT 97
[2023-10-03 19:35] VITALS: O2SAT 90; O2SAT 97
[2023-10-03 20:41] VITALS: BP 139/87; O2SAT 90
== END 2023-10-03 20:41 | disposition home or self-care (01) ==
LOC: ER 17:09
DX: J45.901 Unspecified asthma with (acute) exacerbation (principal); R06.00 Dyspnea, unspecified; R05.9 Cough, unspecified; R03.0 Elevated blood-pressure reading, without diagnosis of hypertension; F41.9 Anxiety disorder, unspecified; E78.00 Pure hypercholesterolemia, unspecified; Z98.890 Other specified postprocedural states; Z79.899 Other long term (current) drug therapy; Z60.2 Problems related to living alone; Z88.2 Allergy status to sulfonamides; Z88.1 Allergy status to other antibiotic agents
CPT/HCPCS: 99283; 71045; 94640; J7512; A4606; A4663; J3590

== ENCOUNTER 2023-10-13 19:31 | Emergency (ER) | payer MEDICARE, BC ==
[~2023-10-13] VITALS: Ht 175.3 cm; Wt 66.2 kg
[2023-10-13] MEDS: ALBUTEROL SULFATE 2.5 MG/ 0.5 ML NEBU NEB ONE (20:19)
[2023-10-13] MEDS ORDERED: ALBUTEROL SULFATE 2.5 MG/3 ML NEBU ONE (20:23)
[2023-10-13 20:25] VITALS: O2SAT 98
[2023-10-13 20:40] VITALS: O2SAT 98
[2023-10-13] MEDS ORDERED: predniSONE 50 MG TABLET ONE (21:07)
[2023-10-13] MEDS: predniSONE 50 MG TABLET PO ONE (21:14)
[2023-10-13 21:35] VITALS: BP 132/90; TEMP 97.8; O2SAT 100
== END 2023-10-13 21:36 | disposition home or self-care (01) ==
LOC: ER 19:33
DX: J45.901 Unspecified asthma with (acute) exacerbation (principal); F41.9 Anxiety disorder, unspecified; Z79.899 Other long term (current) drug therapy; Z60.2 Problems related to living alone; Z88.2 Allergy status to sulfonamides; Z88.5 Allergy status to narcotic agent
CPT/HCPCS: 99283; 94640; J7512; A4606; A4663

== ENCOUNTER 2023-12-27 17:53 | Emergency (ER) | payer MEDICARE, BC ==
[~2023-12-27] VITALS: Ht 175.3 cm; Wt 66.2 kg
[2023-12-27] MEDS ORDERED: ALBUTEROL SULFATE 2.5 MG/3 ML NEBU ONE (18:20)
[2023-12-27] MEDS ORDERED: IPRATROPIUM BROMIDE 0.5 MG/2.5 ML NEBU ONE (18:20)
[2023-12-27] MEDS: IPRATROPIUM BROMIDE 0.5 MG/2.5 ML NEBU NEB ONE (18:25)
[2023-12-27] MEDS: ALBUTEROL SULFATE 2.5 MG/3 ML NEBU NEB ONE (18:25)
[2023-12-27] MEDS ORDERED: ALBU6.7H9 INH (18:25)
[2023-12-27] MEDS ORDERED: FLUT1DIS27 INH (18:25)
[2023-12-27 18:26] VITALS: O2SAT 96
[2023-12-27] MEDS ORDERED: predniSONE 20 MG TABLET ONE (18:37)
[2023-12-27 18:39] VITALS: O2SAT 96
[2023-12-27] MEDS: predniSONE 20 MG TABLET PO ONE (18:39)
[2023-12-27 18:41] VITALS: O2SAT 96
[2023-12-27 19:06] VITALS: BP 122/80; TEMP 97; O2SAT 99
[2023-12-27] MEDS ORDERED: PRED20TA PO (19:15)
== END 2023-12-27 19:06 | disposition home or self-care (01) ==
LOC: ER 18:07
DX: J45.901 Unspecified asthma with (acute) exacerbation (principal); Z98.890 Other specified postprocedural states; Z79.899 Other long term (current) drug therapy; Z88.1 Allergy status to other antibiotic agents
CPT/HCPCS: 99283; 94640; J7512; A4606; A4663; J3590

== ENCOUNTER 2024-02-08 15:57 | Emergency (ER) | payer MEDICARE, BC ==
[~2024-02-08] VITALS: Ht 175.3 cm; Wt 65.8 kg
[~2024-02-08 15:57] MED LIST changes: -AMOX500C2 PO; -CETI-90 PO; -DIAZ5TAB4 PO; -DOCU250C14 PO; -DOXY-326 PO; -DOXY100C5 PO; -FEXO-65 PO; -GABA300C PO; -NEOM10DR11 EACH EAR; -PRED50TA PO
[2024-02-08] MEDS ORDERED: ALBUTEROL SULFATE 2.5 MG/3 ML NEBU ONE ×2 (17:34→17:37)
[2024-02-08] MEDS: ALBUTEROL SULFATE 2.5 MG/3 ML NEBU NEB ONE (17:36)
[2024-02-08] MEDS ORDERED: predniSONE 10 MG TABLET ONE (17:48)
[2024-02-08] MEDS ORDERED: predniSONE 50 MG TABLET ONE (17:48)
[2024-02-08] MEDS: predniSONE 10 MG TABLET PO ONE (17:54)
[2024-02-08 18:00] VITALS: O2SAT 97
[2024-02-08] MEDS ORDERED: PRED50TA PO (18:12)
[2024-02-08] MEDS ORDERED: ALBU6.7H9 INH (18:13)
[2024-02-08 18:55] VITALS: BP 122/80; O2SAT 97
== END 2024-02-08 18:56 | disposition home or self-care (01) ==
LOC: ER 16:39
DX: R06.02 Shortness of breath (principal); T59.891A Toxic effect of other specified gases, fumes and vapors, accidental (unintentional), initial encounter; J45.909 Unspecified asthma, uncomplicated; Z79.899 Other long term (current) drug therapy; Z60.2 Problems related to living alone; Z88.2 Allergy status to sulfonamides; Z88.1 Allergy status to other antibiotic agents; Y92.89 Other specified places as the place of occurrence of the external cause
CPT/HCPCS: 99285; 71045; 94644; J7512 ×2; A4606; A4663

== ENCOUNTER 2024-07-03 01:04 | Emergency (ER) | payer MEDICARE, BC ==
[2024-07-03] VITALS (7 sets, daily range): BP systolic 99; BP diastolic 56; TEMP 98; O2SAT 98–100
[~2024-07-03] VITALS: Ht 175.3 cm; Wt 66.2 kg
[~2024-07-03 01:04] MED LIST changes: +PRED50TA PO
[2024-07-03] MEDS ORDERED: predniSONE 50 MG TABLET ONE (01:32)
[2024-07-03] MEDS ORDERED: ALBUTEROL SULFATE 2.5 MG/3 ML NEBU ONE ×2 (01:35→02:18)
[2024-07-03] MEDS: predniSONE 50 MG TABLET PO ONE (01:35)
[2024-07-03] MEDS ORDERED: IPRATROPIUM BROMIDE 0.5 MG/2.5 ML NEBU ONE ×2 (01:36→02:19)
[2024-07-03] MEDS ORDERED: ALBU8.5H8 INH (01:36)
[2024-07-03] MEDS ORDERED: PRED50TA PO (01:36)
[2024-07-03] MEDS: IPRATROPIUM BROMIDE 0.5 MG/2.5 ML NEBU NEB ONE ×2 (01:53→02:14)
[2024-07-03] MEDS: ALBUTEROL SULFATE 2.5 MG/3 ML NEBU NEB ONE ×2 (01:53→02:15)
== END 2024-07-03 03:53 | disposition home or self-care (01) ==
LOC: ER 01:16
DX: J45.901 Unspecified asthma with (acute) exacerbation (principal); F41.9 Anxiety disorder, unspecified; E78.00 Pure hypercholesterolemia, unspecified; Z79.51 Long term (current) use of inhaled steroids; Z79.52 Long term (current) use of systemic steroids; Z88.1 Allergy status to other antibiotic agents; Z88.2 Allergy status to sulfonamides; Z88.7 Allergy status to serum and vaccine; Z90.89 Acquired absence of other organs; Z20.822 Contact with and (suspected) exposure to COVID-19
CPT/HCPCS: 99284; 71045; 87426; 87804 ×2; 94640; J7512; A4606; A4663; J3590

== ENCOUNTER 2024-09-15 21:17 | Emergency (ER) | payer MEDICARE, BC ==
[~2024-09-15] VITALS: Ht 175.3 cm; Wt 80.7 kg
[2024-09-15] MEDS: ALBUTEROL SULFATE 2.5 MG/3 ML NEBU NEB ONE (22:53)
[2024-09-15] MEDS: IPRATROPIUM BROMIDE 0.5 MG/2.5 ML NEBU NEB ONE (22:53)
[2024-09-15] MEDS ORDERED: IPRATROPIUM BROMIDE 0.5 MG/2.5 ML NEBU ONE (22:58)
[2024-09-15] MEDS ORDERED: ALBUTEROL SULFATE 2.5 MG/3 ML NEBU ONE (22:58)
[2024-09-15] MEDS ORDERED: AMOXicillin 250 MG CAPSULE ONE ×2 (23:00→23:10)
[2024-09-15] MEDS ORDERED: predniSONE 10 MG TABLET ONE (23:00)
[2024-09-15] MEDS: AMOXicillin 250 MG CAPSULE PO ONE (23:02)
[2024-09-15] MEDS: predniSONE 10 MG TABLET PO ONE (23:02)
[2024-09-15] MEDS ORDERED: PRED20TA PO (23:12)
[2024-09-15] MEDS ORDERED: AMOX500C2 PO (23:12)
[2024-09-15] MEDS ORDERED: FLUT1DIS28 INH (23:12)
[2024-09-15 23:17] VITALS: O2SAT 97
[2024-09-15 23:20] VITALS: O2SAT 98
[2024-09-15 23:33] VITALS: BP 132/70; TEMP 97.7; O2SAT 98
== END 2024-09-15 23:35 | disposition home or self-care (01) ==
LOC: ER 21:21
DX: J98.01 Acute bronchospasm (principal); H92.03 Otalgia, bilateral; E78.00 Pure hypercholesterolemia, unspecified; Z79.51 Long term (current) use of inhaled steroids; Z79.52 Long term (current) use of systemic steroids; Z20.822 Contact with and (suspected) exposure to COVID-19; Z90.89 Acquired absence of other organs; Z88.1 Allergy status to other antibiotic agents; Z88.2 Allergy status to sulfonamides; Z88.7 Allergy status to serum and vaccine
CPT/HCPCS: 99284; 71045; 87426; 94640; J7512; A4606; A4663; J3590

== ENCOUNTER 2024-09-24 11:32 | Emergency (ER) | payer MEDICARE, BC ==
[~2024-09-24] VITALS: Ht 175.3 cm; Wt 65.8 kg
[~2024-09-24 11:32] MED LIST changes: +AMOX500C2 PO; +FLUT1DIS28 INH
[2024-09-24] MEDS ORDERED: predniSONE 20 MG TABLET ONE (12:44)
[2024-09-24] MEDS ORDERED: ALBUTEROL SULFATE 2.5 MG/3 ML NEBU ONE (12:49)
[2024-09-24] MEDS ORDERED: IPRATROPIUM BROMIDE 0.5 MG/2.5 ML NEBU ONE (12:49)
[2024-09-24 12:59] LABS: BASOPHILS % (AUTO) 0.8 % (0.0-2.0); EOSINOPHILS # (AUTO) 0.2 K/uL (0.0-0.7); EOSINOPHILS % (AUTO) 3.5 % (0.0-7.0); HEMATOCRIT 34.2 % (31.2-41.9); HEMOGLOBIN 11.6 g/dL (10.9-14.3); LYMPHOCYTES # (AUTO) 2.2 K/uL (0.8-4.8); LYMPHOCYTES % (AUTO) 38.1 % (20.5-51.5); MEAN CORPUSCULAR HEMOGLOBIN 32.2 uug (24.7-32.8); MEAN CORPUSCULAR HGB CONC 34 g/dL (32.3-35.6); MEAN CORPUSCULAR VOLUME 94.8 fL (75.5-95.3); MONOCYTES # (AUTO) 0.5 K/uL (0.1-1.30); MONOCYTES % (AUTO) 8.8 % (0.0-11.0); NEUTROPHILS # (AUTO) 2.8 K/uL (1.8-8.9); NEUTROPHILS % (AUTO) 48.8 % (38.5-71.5); PLATELET COUNT (AUTO) 198 K/uL (179-408); RED BLOOD CELL COUNT(AUTO) 3.61 MIL/uL (3.63-4.92); RED CELL DISTRIBUTION WIDTH 13.2 % (12.3-17.7); WHITE BLOOD COUNT (AUTO) 5.8 K/uL (3.8-11.8)
[2024-09-24 13:00] VITALS: O2SAT 96
[2024-09-24 13:01] LABS: DIFFERENTIAL COMMENT 1
[2024-09-24 13:04] LABS: CALCIUM 9.1 mg/dL (8.5-10.1); CARBON DIOXIDE 31 mmol/L (21-32); CHLORIDE 106 mmol/L (98-107); GLUCOSE 101 mg/dL (74-106); POTASSIUM 3.6 mmol/L (3.5-5.1); SODIUM SERUM 147 mmol/L (136-145); UREA NITROGEN, BLOOD 16 mg/dL (7-18)
[2024-09-24] MEDS ORDERED: FLUT12AE5 INH (13:27)
[2024-09-24] MEDS ORDERED: PRED20TA PO (13:27)
[2024-09-24] MEDS ORDERED: GUAI5SYR4 PO (13:27)
[2024-09-24] MEDS: ALBUTEROL SULFATE 2.5 MG/3 ML NEBU NEB ONE (13:37)
[2024-09-24] MEDS: IPRATROPIUM BROMIDE 0.5 MG/2.5 ML NEBU NEB ONE (13:37)
[2024-09-24] MEDS: predniSONE 20 MG TABLET PO ONE (13:44)
[2024-09-24 14:00] VITALS: O2SAT 99
== END 2024-09-24 13:44 | disposition home or self-care (01) ==
LOC: ER 11:40
DX: J45.901 Unspecified asthma with (acute) exacerbation (principal); J06.9 Acute upper respiratory infection, unspecified; J34.89 Other specified disorders of nose and nasal sinuses; B97.89 Other viral agents as the cause of diseases classified elsewhere; Z79.51 Long term (current) use of inhaled steroids; Z79.52 Long term (current) use of systemic steroids; Z90.89 Acquired absence of other organs; Z88.1 Allergy status to other antibiotic agents; Z88.2 Allergy status to sulfonamides; Z88.7 Allergy status to serum and vaccine
CPT/HCPCS: 99285; 71045; 80048; 85025; 36415; 94644; J7512; A4606; A4663; J3590

== ENCOUNTER 2024-10-10 14:25 | Emergency (ER) | payer MEDICARE, BC ==
[~2024-10-10] VITALS: Ht 175.3 cm; Wt 65.8 kg
[~2024-10-10 14:25] MED LIST changes: +FLUT12AE5 INH; +GUAI5SYR4 PO
[2024-10-10] MEDS ORDERED: CEPH500T PO (15:44)
[2024-10-10] MEDS ORDERED: CEphaleXIN 500 MG CAPSULE ONE (15:50)
[2024-10-10] MEDS: CEphaleXIN 500 MG CAPSULE PO ONE (15:52)
[2024-10-10 15:54] LABS: *BILIRUBIN,URIN NEGATIVE (NEGATIVE); *BLOOD, URINE TRACE (NEGATIVE); *CLARITY,URINE CLEAR (CLEAR); *COLOR,URINE YELLOW (YELLOW); *KETONES,URINE NEGATIVE (NEGATIVE); *PROTEIN,URINE NEGATIVE (NEGATIVE); *UROBILINOGEN,URINE 0.2 E.U./dl (NORMAL); LEUKOCYTE ESTERASE ,URINE TRACE (NEGATIVE); NITRITE, URINE NEGATIVE (NEGATIVE); UGLUCOSE NEGATIVE (NEGATIVE)
[2024-10-10 15:55] LABS: BACTERIA,URINE FEW /HPF (NONE SEEN); SQUAMOUS EPITHELIAL CELL,UR FEW /HPF (NONE SEEN)
[2024-10-10 16:12] VITALS: BP 153/71; TEMP 98; O2SAT 99
== END 2024-10-10 16:13 | disposition home or self-care (01) ==
LOC: ER 14:25
DX: N39.0 Urinary tract infection, site not specified (principal); M54.9 Dorsalgia, unspecified; E78.5 Hyperlipidemia, unspecified; J44.89 Other specified chronic obstructive pulmonary disease; Z79.51 Long term (current) use of inhaled steroids; Z79.52 Long term (current) use of systemic steroids; Z87.440 Personal history of urinary (tract) infections; Z88.1 Allergy status to other antibiotic agents; Z88.2 Allergy status to sulfonamides; Z88.7 Allergy status to serum and vaccine
CPT/HCPCS: 87086; A4606; A4663

== ENCOUNTER 2024-12-01 09:30 | Emergency (ER) | payer MEDICARE, BC ==
[~2024-12-01] VITALS: Ht 172.7 cm; Wt 65.8 kg
[~2024-12-01 09:30] MED LIST changes: +CEPH500T PO
[2024-12-01] MEDS ORDERED: predniSONE 20 MG TABLET ONE (10:40)
[2024-12-01 10:52] VITALS: O2SAT 96
[2024-12-01] MEDS: IPRATROPIUM BROMIDE 0.5 MG/2.5 ML NEBU NEB ONE (10:52)
[2024-12-01] MEDS: ALBUTEROL SULFATE 2.5 MG/3 ML NEBU NEB ONE (10:52)
[2024-12-01] MEDS ORDERED: IPRATROPIUM BROMIDE 0.5 MG/2.5 ML NEBU ONE (10:55)
[2024-12-01] MEDS ORDERED: ALBUTEROL SULFATE 2.5 MG/3 ML NEBU ONE (10:55)
[2024-12-01] MEDS: predniSONE 20 MG TABLET PO ONE (11:08)
[2024-12-01 11:52] VITALS: O2SAT 99
[2024-12-01] MEDS ORDERED: ALBU2.5V38 NEB (12:23)
[2024-12-01] MEDS ORDERED: NEBU-171 MC (12:23)
[2024-12-01 12:28] VITALS: BP 144/82; TEMP 97.6; O2SAT 96
== END 2024-12-01 12:30 | disposition home or self-care (01) ==
LOC: ER 09:30
DX: J45.901 Unspecified asthma with (acute) exacerbation (principal); E78.00 Pure hypercholesterolemia, unspecified; Z79.51 Long term (current) use of inhaled steroids; Z79.52 Long term (current) use of systemic steroids; Z88.1 Allergy status to other antibiotic agents; Z88.2 Allergy status to sulfonamides; Z88.7 Allergy status to serum and vaccine
CPT/HCPCS: 99285; 94644; J7512; 94760; A4606; A4663; J3590

== ENCOUNTER 2025-03-29 19:24 | Emergency (ER) | payer MEDICARE, BC ==
[~2025-03-29] VITALS: Ht 172.7 cm; Wt 66.2 kg
[~2025-03-29 19:24] MED LIST changes: +ALBU2.5V38 NEB; +AMOX-430 PO; +NEBU-171 MC; +PHEN-704 PO
[2025-03-29 20:30] VITALS: O2SAT 97
[2025-03-29] MEDS ORDERED: ALBUTEROL SULFATE 2.5 MG/3 ML NEBU ONE (20:39)
[2025-03-29 20:41] VITALS: O2SAT 97
[2025-03-29 20:45] VITALS: O2SAT 98
[2025-03-29] MEDS: ALBUTEROL SULFATE 2.5 MG/3 ML NEBU NEB ONE (20:51)
[2025-03-29] MEDS ORDERED: FLUT1DIS28 INH (21:15)
[2025-03-29] MEDS ORDERED: PRED50TA PO (21:15)
[2025-03-29 21:20] VITALS: O2SAT 98
== END 2025-03-29 21:20 | disposition home or self-care (01) ==
LOC: ER 19:34
DX: J45.901 Unspecified asthma with (acute) exacerbation (principal); E78.00 Pure hypercholesterolemia, unspecified; Z79.51 Long term (current) use of inhaled steroids; Z79.52 Long term (current) use of systemic steroids; Z88.1 Allergy status to other antibiotic agents; Z88.2 Allergy status to sulfonamides; Z88.7 Allergy status to serum and vaccine; Z90.89 Acquired absence of other organs; Z88.8 Allergy status to other drugs, medicaments and biological substances
CPT/HCPCS: 99283; 71045; 94640; 93005; J7512; A4606; A4663

== ENCOUNTER 2025-04-03 16:06 | Emergency (ER) | payer MEDICARE, BC ==
[~2025-04-03] VITALS: Ht 175.3 cm; Wt 67.1 kg
[2025-04-03 18:50] VITALS: O2SAT 95
[2025-04-03] MEDS ORDERED: IPRATROPIUM BROMIDE 0.5 MG/2.5 ML NEBU ONE (19:03)
[2025-04-03] MEDS ORDERED: ALBU18HF2 INH (19:03)
[2025-04-03] MEDS ORDERED: BUDE10.2 INH (19:03)
[2025-04-03] MEDS ORDERED: AMOX500C2 PO (19:03)
[2025-04-03] MEDS ORDERED: ALBUTEROL SULFATE 2.5 MG/3 ML NEBU ONE (19:03)
[2025-04-03 19:05] VITALS: O2SAT 99
[2025-04-03] MEDS: ALBUTEROL SULFATE 2.5 MG/3 ML NEBU NEB ONE (19:13)
[2025-04-03] MEDS: IPRATROPIUM BROMIDE 0.5 MG/2.5 ML NEBU NEB ONE (19:13)
[2025-04-03 19:40] VITALS: BP 110/70; TEMP 98; O2SAT 95
== END 2025-04-03 19:40 | disposition home or self-care (01) ==
LOC: ER 16:06
DX: J45.909 Unspecified asthma, uncomplicated (principal); E78.00 Pure hypercholesterolemia, unspecified; Z76.0 Encounter for issue of repeat prescription; Z79.51 Long term (current) use of inhaled steroids; Z79.52 Long term (current) use of systemic steroids; Z88.1 Allergy status to other antibiotic agents; Z88.2 Allergy status to sulfonamides; Z88.7 Allergy status to serum and vaccine; Z90.89 Acquired absence of other organs; Z88.8 Allergy status to other drugs, medicaments and biological substances
CPT/HCPCS: 99283; 94640; J7512; A4606; A4663; J3590

== ENCOUNTER 2025-04-20 19:13 | Emergency (ER) | payer MEDICARE, BC ==
[~2025-04-20] VITALS: Ht 175.3 cm; Wt 66.7 kg
[~2025-04-20 19:13] MED LIST changes: +ALBU18HF2 INH; +BUDE10.2 INH
[2025-04-20 23:00] VITALS: BP 147/67
[2025-04-21 00:46] VITALS: O2SAT 95
[2025-04-21] MEDS: IPRATROPIUM BROMIDE 0.5 MG/2.5 ML NEBU NEB ONE (00:46)
[2025-04-21] MEDS: ALBUTEROL SULFATE 2.5 MG/3 ML NEBU NEB ONE (00:46)
[2025-04-21] MEDS ORDERED: AMOX-430 PO (00:47)
[2025-04-21 00:56] VITALS: O2SAT 99
[2025-04-21 03:28] VITALS: BP 144/65; O2SAT 99
== END 2025-04-21 01:10 | disposition home or self-care (01) ==
LOC: ER 19:13
DX: J02.9 Acute pharyngitis, unspecified (principal); J45.901 Unspecified asthma with (acute) exacerbation; E78.00 Pure hypercholesterolemia, unspecified; Z79.51 Long term (current) use of inhaled steroids; Z79.52 Long term (current) use of systemic steroids; Z88.1 Allergy status to other antibiotic agents; Z88.2 Allergy status to sulfonamides; Z88.7 Allergy status to serum and vaccine; Z90.89 Acquired absence of other organs; Z20.822 Contact with and (suspected) exposure to COVID-19; Z59.00 Homelessness unspecified
CPT/HCPCS: 71045; A4606; A4663; J3590

== ENCOUNTER 2025-05-08 20:28 | Emergency (ER) | payer MEDICARE, BC ==
[~2025-05-08] VITALS: Ht 175.3 cm; Wt 65.8 kg
[2025-05-08 20:51] VITALS: BP 139/107
[2025-05-08] MEDS ORDERED: IPRATROPIUM BROMIDE 0.5 MG/2.5 ML NEBU ONE (21:18)
[2025-05-08] MEDS ORDERED: ALBUTEROL SULFATE 2.5 MG/3 ML NEBU ONE (21:18)
[2025-05-08] MEDS: ALBUTEROL SULFATE 2.5 MG/3 ML NEBU NEB ONE (21:21)
[2025-05-08] MEDS: IPRATROPIUM BROMIDE 0.5 MG/2.5 ML NEBU NEB ONE (21:21)
[2025-05-08 21:34] VITALS: O2SAT 98
[2025-05-08] MEDS ORDERED: PREG300C19 PO (21:34)
[2025-05-08] MEDS ORDERED: DIAZ10TA4 PO (21:34)
[2025-05-08] MEDS ORDERED: GABAPENTIN 300 MG CAPSULE ONE (21:36)
[2025-05-08] MEDS: GABAPENTIN 300 MG CAPSULE PO ONE (22:00)
[2025-05-08 22:29] VITALS: BP 126/85; TEMP 98; O2SAT 97
== END 2025-05-08 22:35 | disposition home or self-care (01) ==
LOC: ER 20:28
DX: J98.01 Acute bronchospasm (principal); J44.1 Chronic obstructive pulmonary disease with (acute) exacerbation; F41.9 Anxiety disorder, unspecified; Z79.51 Long term (current) use of inhaled steroids; Z79.52 Long term (current) use of systemic steroids; Z79.899 Other long term (current) drug therapy; Z88.1 Allergy status to other antibiotic agents; Z88.2 Allergy status to sulfonamides; Z88.7 Allergy status to serum and vaccine; Z90.89 Acquired absence of other organs
CPT/HCPCS: 99284; 71045; J7512; A4606; A4663; J3590

== ENCOUNTER 2025-05-09 03:45 | Emergency (ER) | payer MEDICARE, BC ==
[~2025-05-09] VITALS: Ht 175.3 cm; Wt 65.8 kg
[~2025-05-09 03:45] MED LIST changes: +DIAZ10TA4 PO; +PREG300C19 PO
[2025-05-09] MEDS ORDERED: DIAZEPAM 2 MG TABLET ONE (04:13)
[2025-05-09] MEDS: DIAZEPAM 2 MG TABLET PO ONE (04:13)
[2025-05-09 05:50] VITALS: BP 134/59
[2025-05-09 06:48] VITALS: BP 134/59; TEMP 98; O2SAT 94
== END 2025-05-09 06:45 | disposition home or self-care (01) ==
LOC: ER 03:51
DX: F41.9 Anxiety disorder, unspecified (principal); J02.0 Streptococcal pharyngitis; J44.89 Other specified chronic obstructive pulmonary disease; Z79.51 Long term (current) use of inhaled steroids; Z79.52 Long term (current) use of systemic steroids; Z79.899 Other long term (current) drug therapy; Z88.1 Allergy status to other antibiotic agents; Z88.2 Allergy status to sulfonamides; Z88.7 Allergy status to serum and vaccine; Z90.89 Acquired absence of other organs
CPT/HCPCS: A4606; A4663

== ENCOUNTER 2025-05-09 19:31 | Emergency (ER) | payer MEDICARE, BC ==
[~2025-05-09] VITALS: Ht 175.3 cm; Wt 65.8 kg
[2025-05-09 19:49] VITALS: BP 132/89
[2025-05-09 21:07] VITALS: BP 132/89; TEMP 98; O2SAT 95
== END 2025-05-09 21:07 | disposition home or self-care (01) ==
LOC: ER 19:34
DX: Z00.00 Encounter for general adult medical examination without abnormal findings (principal); E78.00 Pure hypercholesterolemia, unspecified; J45.909 Unspecified asthma, uncomplicated; Z79.51 Long term (current) use of inhaled steroids; Z79.52 Long term (current) use of systemic steroids; Z79.899 Other long term (current) drug therapy; Z88.1 Allergy status to other antibiotic agents; Z88.2 Allergy status to sulfonamides; Z88.7 Allergy status to serum and vaccine; Z90.89 Acquired absence of other organs
CPT/HCPCS: A4606; A4663

== ENCOUNTER 2025-06-26 16:18 | Emergency (ER) | payer MEDICARE, BC ==
[~2025-06-26] VITALS: Ht 172.7 cm; Wt 84.4 kg
[2025-06-26] MEDS ORDERED: ALBUTEROL SULFATE 2.5 MG/ 0.5 ML NEBU ONE (16:38)
[2025-06-26] MEDS ORDERED: IPRATROPIUM BROMIDE 0.5 MG/2.5 ML NEBU ONE (16:38)
[2025-06-26] MEDS ORDERED: ALBUTEROL SULFATE 1.25 MG/3 ML NEBU ONE (16:40)
[2025-06-26 16:43] VITALS: O2SAT 96
[2025-06-26 16:55] VITALS: O2SAT 99
[2025-06-26 17:00] VITALS: BP 110/69
[2025-06-26] MEDS ORDERED: AMOX500T2 PO (17:07)
[2025-06-26] MEDS ORDERED: PRED20TA PO (17:07)
[2025-06-26] MEDS ORDERED: ALBU8.5H8 INH (17:07)
[2025-06-26] MEDS ORDERED: FLUT1BLS15 INH (17:07)
[2025-06-26] MEDS: IPRATROPIUM BROMIDE 0.5 MG/2.5 ML NEBU NEB ONE (17:19)
[2025-06-26] MEDS: ALBUTEROL SULFATE 2.5 MG/3 ML NEBU NEB ONE (17:19)
[2025-06-26 17:20] VITALS: BP 106/70; O2SAT 98
== END 2025-06-26 17:21 | disposition home or self-care (01) ==
LOC: ER 16:18
DX: J45.901 Unspecified asthma with (acute) exacerbation (principal); J02.0 Streptococcal pharyngitis; E78.00 Pure hypercholesterolemia, unspecified; Z79.51 Long term (current) use of inhaled steroids; Z79.52 Long term (current) use of systemic steroids; Z79.899 Other long term (current) drug therapy; Z88.1 Allergy status to other antibiotic agents; Z88.2 Allergy status to sulfonamides; Z88.7 Allergy status to serum and vaccine; Z90.89 Acquired absence of other organs
CPT/HCPCS: 99283; 99406; 94640; J7512 ×2; A4606; A4663; J3590